=== PATIENT | male | born 1960 | race Caucasian/White ===

== ENCOUNTER 2016-12-31 22:38 | Inpatient (IN) | payer BC ==
[~2016-12-31] VITALS: Ht 172.7 cm; Wt 93.6 kg
[2016-12-31 23:44] LABS: MEAN CELL VOLUME 84.1 fL (80-100); MEAN CORPUSCULAR HEMOGLOBIN 30.3 pg (25-34); PLATELET COUNT 183 K/uL (130-400); RED BLOOD COUNT 5.11 M/uL (4.7-6.1); WHITE BLOOD COUNT 8.89 K/uL (4.8-10.8)
[2016-12-31 23:45] LABS: URINE APPEARANCE CLEAR (CLEAR); URINE BILIRUBIN NEG (NEG); URINE COLOR YELLOW; URINE NITRITE NEG (NEG); URINE SPECIFIC GRAVITY 1.017 (1.000-1.030); UROBILINOGEN POS (NEG); ZZUR CULT IF INDIC CLEAN CATCH NO
[2016-12-31 23:49] LABS: MANUAL MICROSCOPIC REQUIRED? NO; REVIEW REQ? NO
[2017-01-01 00:06] LABS: CREATININE 1.1 mg/dl (0.60-1.40); POTASSIUM 3.8 mmol/L (3.5-5.1)
[2017-01-01] MEDS ORDERED: MELO7.5T5 PO (00:06)
[2017-01-01] MEDS ORDERED: SODIUM CHLORIDE 0.9% 500ML 500 ML IV STA (00:08)
[2017-01-01] MEDS ORDERED: ASCA500 PO (00:11)
[2017-01-01] MEDS ORDERED: CHOL200010 PO (00:11)
[2017-01-01] MEDS ORDERED: POTA99TA PO (00:11)
[2017-01-01] MEDS ORDERED: PRLSR20 PO (00:11)
[2017-01-01] MEDS ORDERED: MELO15TA4 PO (00:12)
[2017-01-01] MEDS ORDERED: FERR50TA3 PO (00:13)
[2017-01-01 00:17] LABS: BASO % 0.3 %; BASO ABS # 0.03 K/uL (0-0.2); COMPLETE YES; EOS % 1.3 %; IG% 0.1 %; LYMPH ABS # 1.07 K/uL (1.2-3.4); MONO % 9.8 %; NEUT % 76.5 %
[2017-01-01] MEDS ORDERED: OPTIRAY 320 IV PRN (00:30)
[2017-01-01 02:24] LABS: INFLUENZA A PCR Neg for Influ A (NEG); INFLUENZA B PCR Neg for Influ B (NEG)
--- NOTE | 2017-01-01 02:24 | EMERGENCY ROOM VISIT NOTE ---
History Report prepared by Dao: Foreign Esteban Under the Supervision of: Dr. Shivani Tadeo M.D. First contact with patient: 23:30 Chief Complaint: FLANK PAIN Stated Complaint: PAIN IN SIDE History of Present Illness The patient is a 56 year old male who presents to the Emergency Room with complaints of intermittent right flank pain beginning 15 hours ago. He describes his pain as "sharp". He states that his pain is worsened with twisting. The patient states that he has not been able to get comfortable since his pain began. He denies any pain radiation and states that the pain does not move. He denies any nausea. The patient notes that he does a lot of physical activity at his job. He also complains of a cough. He states that he has been eating normally and denies any recent weight loss. The patient has no history of smoking. Source of History: patient Onset: 15 hours ago Position: other (right flank) Quality: sharp Timing: intermittent Modifying Factors (Worsening): other (twisting) Associated Symptoms: + cough, No nausea Review of Systems See HPI for pertinent positives & negatives. A total of 10 systems reviewed and were otherwise negative. Past Medical & Surgical Medical Problems: (1) Arthritis Family History No pertinent family history stated. Social History Smoking Status: Never Smoker Marital Status: Housing Status: lives with family Occupation Status: employed Current/Historical Medications Scheduled Ascorbic Acid (Vitamin C), 500 MG PO DAILY Cholecalciferol (Vitamin D), 2,000 UNIT PO DAILY Ferrous Sulfate (Iron (Ferrous Sulfate)), 1 TAB PO DAILY Meloxicam (Mobic), 15 MG PO DAILY Omeprazole (Prilosec), 20 MG PO BID Potassium (Potassium), 99 MG PO DAILY Allergies Coded Allergies: No Known Allergies (Unverified , 12/31/16) Physical Exam Vital Signs Date Time Temp Pulse Resp B/P Pulse Ox O2 Delivery O2 Flow Rate FiO2 01/01/17 01:20 90 22 128/78 93 Room Air 01/01/17 00:23 92 18 132/67 96 Room Air 01/01/17 00:02 94 12/31/16 22:44 37.8 96 18 150/87 95 Room Air Physical Exam Vital signs reviewed. General: Well-appearing male, in no significant distress. Noted to be mildly febrile. HEENT: No scleral icterus, PERRLA, neck supple. Atraumatic. Cardiovascular: Regular rate and rhythm, no extra sounds. Pulmonary: Diminished breath sounds at the right lung base. Splinting with deep inspiration. Abdomen: Soft, nontender, nondistended, positive bowel sounds. Musculoskeletal: Atraumatic, no peripheral edema. Neurologic: Patient awake alert and oriented x 3, full strength in all 4 extremities. Cranial nerves 2 through 12 grossly intact. Skin: Warm, dry, no rash Medical Decision & Procedures ER Provider Diagnostic Interpretation: CT results per statrad and my review. CTA CHEST: Pulmonary embolism in right lower lobe pulmonary artery, extending into segmental branches. Additional pulmonary emboli in left basilar segmental branches. Evaluation of lung parenchyma is limited by motion artifact, but there are patchy opacities in bilateral lung bases and lingula, which likely represent combination of atelectasis and pulmonary ischemia. No definite evidence of right heart strain. Trace right pleural fluid. No pericardial effusion. Two View Chest X-ray interpreted by me: Wedge shaped pulmonary consolidation in the retrocardiac region consistent with pneumonia. Fluid in the right fissure. Laboratory Results Test 12/31/16 23:30 01/01/17 00:04 01/01/17 00:20 Prothrombin Time 10.5 SECONDS (9.0-12.0) Prothromb Time International Ratio 1.0 (0.9-1.1) Activated Partial Thromboplast Time 28.5 SECONDS (21.0-31.0) Partial Thromboplastin Ratio 1.1 Urine Color YELLOW Urine Appearance CLEAR (CLEAR) Urine pH 8.0 (4.5-7.5) Urine Specific [place] 1.017 (1.000-1.030) Urine Protein NEG (NEG) Urine Glucose (UA) NEG (NEG) Urine Ketones NEG (NEG) Urine Occult Blood NEG (NEG) Urine Nitrite NEG (NEG) Urine Bilirubin NEG (NEG) Urine Urobilinogen POS (NEG) Urine Leukocyte Esterase NEG (NEG) Urine WBC (Auto) 0 /hpf (0-5) Urine RBC (Auto) 0-4 /hpf (0-4) Urine Hyaline Casts (Auto) 0 /lpf (0-5) Urine Epithelial Cells (Auto) 5-10 /lpf (0-5) Urine Bacteria (Auto) NEG (NEG) Magnesium Level 2.2 mg/dl (1.8-2.4) Total Bilirubin 1.1 mg/dl (0.2-1) Direct Bilirubin 0.2 mg/dl (0-0.2) Aspartate Amino Transf (AST/SGOT) 14 U/L (15-37) Alanine Aminotransferase (ALT/SGPT) 31 U/L (12-78) Alkaline Phosphatase 64 U/L (45-117) Total Protein 7.4 gm/dl (6.4-8.2) Albumin 3.9 gm/dl (3.4-5.0) Bedside Troponin I 0.000 ng/ml (0-0.045) Influenza Type A (RT-PCR) Neg for Influ A (NEG) Influenza Type A Antigen Neg for Influ A (NEG) Influenza Type B Antigen Neg for Influ B (NEG) Influenza Type B (RT-PCR) Neg for Influ B (NEG) Laboratory results per my review. Medications Administered Medications (Trade) Dose Ordered Sig/Abner Route Start Time Stop Time Status Last Admin Dose Admin Sodium Chloride (Nss 500ml) 500 ml @ 999 mls/hr Q31M STAT IV 01/01/17 00:08 01/01/17 00:38 DC 01/01/17 00:22 999 MLS/HR Heparin Sodium/ Dextrose 1 ea NOW STAT N/A 01/01/17 01:54 01/01/17 02:41 DC 01/01/17 02:34 1 EA ECG Indication: other (flank pain) Rate (beats per minute): 90 Rhythm: normal sinus Findings: no acute ischemic change, no ectopy ED Course 2332: Past medical records reviewed. The patient was evaluated in room C1. A complete history and physical examination was performed. 0008: Ordered Sodium Chloride 500 ml @ 999 mls/hr IV. 0154: Ordered Heparin Sodium/Dextrose. 0218: Upon reevaluation, the patient is resting comfortably. I discussed laboratory and radiographic results with him. He verbalized agreement of the treatment plan. [facility] The patient will be evaluated for further management and care. Medical Decision The patient is a 56 year old male who presents to the ED with complaints of right flank pain. Differentials include pneumonia, pleural effusion, cholecystitis, PE, influenza, ACS, musculoskeletal pain, kidney stone, as well as other etiologies were considered. This patient was evaluated and appeared to be in some discomfort. IV access was obtained and laboratory work was drawn. Patient was hydrated with normal saline solution, he declined any pain medication. Chest x-ray was performed and to my interpretation reveals a wedge shaped density in the retrocardiac region. It does not appear to be a standard pneumonia, a CT scan of the chest was performed to rule out pulmonary embolus. This study is positive for bilateral PE. Patient was informed of the findings. A hypercoagulable workup was drawn as this is an unprovoked PE. Patient was placed on a heparin drip with a standard bolus. Case was discussed with the hospitalist service will evaluate the patient for further management. Patient has are aware of the plan and agree. Consults Time Called: 0158 Consulting Physician: Dr. Eren Lopez Returned Call: 0218 I reviewed the patient's case with Dr. Jason. Bailey will evaluate the patient for further management. Impression Primary Impression: Bilateral pulmonary embolism Scribe Attestation The scribe's documentation has been prepared under my direction and personally reviewed by me in its entirety. I confirm that the note above accurately reflects all work, treatment, procedures, and medical decision making performed by me. Departure Information Dispostion Being Evaluated By Hospitalist Referrals No Doctor, Assigned (PCP) Patient Instructions My [facility]
[2017-01-01] MEDS ORDERED: AZITHROMYCIN 250 MG TAB PO ONE (02:30)
[2017-01-01] MEDS ORDERED: ACETAMINOPHEN 325 MG TAB PO PRN ×2 (02:30→03:15)
[2017-01-01 02:31] LABS: MAGNESIUM 2.2 mg/dl (1.8-2.4)
[2017-01-01 02:32] LABS: PARTIAL THROMBOPLASTIN RATIO 1.1; PROTHROMBIN TIME (PATIENT) 10.5 SECONDS (9.0-12.0)
[2017-01-01] MEDS ORDERED: HEPARIN SOD 5000 UNIT/0.5 ML CARP ONE (02:34)
[2017-01-01] MEDS ORDERED: HEPARIN 25000 UNIT/500 ML D5W ONE (02:34)
[2017-01-01] MEDS ORDERED: AZITHROMYCIN 250 MG TAB ONE (03:01)
[2017-01-01] MEDS ORDERED: LORAZEPAM 2 MG/ML 1 ML VIAL IV PRN (03:15)
[2017-01-01] MEDS ORDERED: BENZONATATE 100MG CAP PO PRN (03:15)
[2017-01-01] MEDS ORDERED: TRAMADOL HCL 50 MG TAB PO PRN (03:15)
[2017-01-01] MEDS ORDERED: MoRPHine SULFATE 4 MG/ML 1 ML CARP\\VIAL IV PRN (03:15)
[2017-01-01] MEDS ORDERED: ONDANSETRON INJ 2 MG/ML 2 ML VIAL IV PRN (03:15)
[2017-01-01] MEDS ORDERED: KETOROLAC TROMETHAMINE 30 MG/ML VIAL IV PRN (03:15)
[2017-01-01] MEDS ORDERED: LACTATED RINGER'S 1000ML 1,000 ML IV ONE (03:15)
[2017-01-01 03:40] VITALS: BP 152/89; PULSE 87; TEMP 37.2; O2SAT 94; Ht 172.7 cm; Wt 93.6 kg
[2017-01-01] MEDS ORDERED: LORAZEPAM INJ 0.5 MG in SYRINGE 0.75 ML IV PRN (04:30)
[2017-01-01] MEDS ORDERED: GUAIFENESIN 600 MG TABCR PO ONE (04:30)
[2017-01-01] MEDS ORDERED: ACETAMINOPHEN 325 MG TAB PO ONE (04:30)
--- NOTE | 2017-01-01 04:35 | HISTORY & PHYSICAL EXAMINATION ---
DATE OF ADMISSION: 01/01/2017 PRIMARY PREVIOUS PCP : Dr. Ivan Horta. The patient requesting to follow up with Dr. Sullivan upon discharge from the hospital. History was obtained from the patient and records. CHIEF COMPLAINT: Right flank pain and shortness of breath. HISTORY OF PRESENT ILLNESS: Medical history is significant for hyperlipidemia, colonic polyps, arthritis. IBS constipation-predominant. A few days history of L lower extremity cramping, no immobilization. No recent prolonged travel. Last night, the patient complained of pleuritic right flank pain, some shortness of breath and dry cough symptoms. Denies aspiration. Low-grade fever. No known sick contacts. CAT scan at the ER initial read showed bilateral pulmonary embolism, atelectasis vs bilateral opacities. The patient was given IV heparin bolus. MEDICAL HISTORY: As above. Last colonoscopy showed adenomatous polyps in 2013. The patient is scheduled for outpx followup colonoscopy on 03/05/2017 ( Dr. Wallace). SURGERIES: He has had knee surgery, tonsillectomy and adenoidectomy. HOME MEDICATIONS: Include; vitamin C, vitamin D, ferrous sulfate, Mobic, Prilosec and potassium. ALLERGIES: No known drug allergies. FAMILY HISTORY: Diabetes, prostate cancer and lung cancer. heart disease. No blood clots. PERSONAL AND SOCIAL HISTORY: Nonsmoker. No chronic intake of alcoholic beverages. [employer]. REVIEW OF SYSTEMS: As per HPI. All other ROS negative. PHYSICAL EXAMINATION: VITAL SIGNS: Blood pressure was noted to be 150/87 later 130/80 pulse rate 92, RR 18, temp 37.8 and sats 96 on room air. GENERAL: Noted to be slightly anxious, in no respiratory distress. Obese. SKIN: Normal color. HEENT: Partial alopecia. Carpio palpebral conjuctivae. Dry mucosa NECK: No JVD. Supple. CHEST: Clear to auscultation. HEART: Regular rate and rhythm. ABDOMEN: Soft. EXTREMITIES: No edema, no tenderness. NEUROLOGIC: No gross focality. LABORATORIES: Hemoglobin was noted to be 15.5, white cell count 8.8 platelets 200 Sodium 140, potassium 3.8, chloride 104, CO2 32, BUN 30, creatinine 1.1 and glucose of 118. Troponin normal. CT chest initial read showed patchy opacities bilateral lung bases and bilateral pulmonary embolism. EKG showed rate of 90, normal sinus rhythm, LVH. ASSESSMENT: 1. Acute pulmonary embolism unprovoked event 2. atypical pneumonia, no sepsis 3. history of colonic polyps. PX scheduled for ffup screening colonoscopy 02/2017 PLAN: [facility] weight-based Lovenox for now defer decision as to choice for maintenance oral anticoagulant to to AM provider Lower extremity venous Dopplers to rule out DVT. Z-pack course Patient's will inform [facility] about new blood clots. DVT prophylaxis, weight-based Lovenox. Full code. MTDD
[2017-01-01 06:18] LABS: HEMATOCRIT 42.5 % (42-52); MEAN CELL VOLUME 83.5 fL (80-100); MEAN CORPUSCULAR HEMOGLOBIN 29.5 pg (25-34); MEAN CORPUSCULAR HGB CONC 35.3 g/dl (32-36); MEAN PLATELET VOLUME 9.4 fL (7.4-10.4); PLATELET COUNT 181 K/uL (130-400); RED BLOOD COUNT 5.09 M/uL (4.7-6.1); WHITE BLOOD COUNT 9.68 K/uL (4.8-10.8)
--- NOTE | 2017-01-01 06:33 | DIAGNOSTIC IMAGING REPORT ---
CHEST 2 VIEWS ROUTINE CLINICAL HISTORY: Atypical chest pain. Pneumonia. Right flank pain. COMPARISON STUDY: No previous studies for comparison. FINDINGS: The heart is mildly enlarged. There is no overt failure. There is no lobar consolidation. There is mild interstitial thickening with a basilar predominance.[ IMPRESSION: 1. Mild cardiomegaly 2. Moderate interstitial thickening with a basilar predominance Electronically signed by: Omkar Saeed M.D. 01/01/2017 6:32 AM Dictated Date/Time: 01/01/2017 6:31 AM
[2017-01-01 06:52] VITALS: BP 132/79; PULSE 84; TEMP 36.8; O2SAT 94
[2017-01-01 06:52] LABS: BUN/CREATININE RATIO 13.1 (10-20); CREATININE 0.94 mg/dl (0.60-1.40); POTASSIUM 3.7 mmol/L (3.5-5.1)
[2017-01-01 06:55] LABS: BASO % 0.1 %; BASO ABS # 0.01 K/uL (0-0.2); COMPLETE YES; EOS % 0.4 %; IG% 0.3 %; LYMPH % 10.1 %; LYMPH ABS # 0.98 K/uL (1.2-3.4); MONO % 9.9 %; NEUT % 79.2 %
[2017-01-01] MEDS ORDERED: ENOXAPARIN 100 MG/1ML SYR SQ SCH (07:00)
--- NOTE | 2017-01-01 07:05 | DIAGNOSTIC IMAGING REPORT ---
CT ANGIOGRAM OF THE CHEST CLINICAL HISTORY: Atypical chest pain. Pneumonia. COMPARISON STUDY: Chest x-ray dated 12/31/2016 TECHNIQUE: Following the IV administration of 91 mL of Optiray-320, CT angiogram of the thorax was performed from the thoracic inlet to the lung bases utilizing the pulmonary embolus protocol. Images are reviewed in the axial, sagittal, and coronal planes. IV contrast was administered without complication. MIP imaging was performed. CT DOSE: 532.82 mGycm FINDINGS: Mediastinal lymph nodes are the upper limits of normal in size measuring up to 1 cm in short axis. Left hilar lymph nodes are the upper limits of normal in size. There is no pathologic axillary lymphadenopathy. There was no evidence of thoracic aortic dilatation. There are bilateral pulmonary artery filling defects, most pronounced involving the lower lobes. The findings are indicative of acute bilateral pulmonary embolism. There is a trace right pleural effusion. There are by basilar airspace opacities. These could be atelectatic or related to pulmonary infarction. IMPRESSION: 1. Acute bilateral pulmonary embolism 2. Trace right pleural effusion 3. Bibasal airspace opacities Electronically signed by: Omkar Saeed M.D. 01/01/2017 7:03 AM Dictated Date/Time: 01/01/2017 6:59 AM
--- NOTE | 2017-01-01 07:13 | DIAGNOSTIC IMAGING REPORT ---
BILATERAL LOWER EXTREMITY VENOUS DOPPLER CLINICAL HISTORY: Leg cramps. COMPARISON STUDY: No previous studies for comparison. TECHNIQUE: Sonography of the deep venous system of the bilateral lower extremities was performed. Compression and augmentation were evaluated. FINDINGS: There is no deep venous thrombus within the right lower extremity. Deep venous thrombus was noted within the left peroneal and posterior tibial veins. Note was made of a 1.5 x 0.6 x 1.4 cm hypoechoic abnormality with the left popliteal fossa. This has low level internal echoes without color flow. IMPRESSION: 1. Deep venous thrombus within the left peroneal and posterior tibial veins. 2. No deep venous thrombus within the right lower extremity. 3. 1.5 x 0.6 x 1.4 cm hypoechoic abnormality within the left popliteal fossa. This may reflect a borderline enlarged lymph node. A follow-up ultrasound in 6 months is recommended. Electronically signed by: Wilfrido Davidson M.D. 01/01/2017 7:11 AM Dictated Date/Time: 01/01/2017 7:09 AM
[2017-01-01] MEDS: PANTOprazole SOD 40 MG TAB PO SCH ×2 (08:17→21:26)
[2017-01-01] MEDS: DOCUSATE SODIUM 100 MG CAP PO SCH (08:17)
--- NOTE | 2017-01-01 13:50 | ECHOCARDIOGRAM REPORT ---
*NOTICE TO RECEIVING DEMOCRAT AGENCY This information is strictly Confidential and protected under [place] law. [place] law prohibits you from making any further disclosure of this information unless further disclosure is expressly permitted by the written consent of the person to whom it pertains or is authorized by law. A general authorization for the release of medical or other information is not sufficient for this purpose. Hospital accepts no responsibility if the information is made available to any other person, INCLUDING THE PATIENT. Interpretation Summary * Name: RICK LANTIGUA Study Date: 01/01/2017 09:41 AM BP: 132/79 mmHg * Patient Location: C.MSN\S\N385\S\2 HR: 84 * : 1960 (M/d/yyyy) Gender: Male Height: 67 in * Age: 56 yrs Ethnicity: [place] Weight: 206 lb * Ordering Physician: Gaby Luevano * Referring Physician: Self, Referred * Performed By: Corine Contreras RDCS * * Reason For Study: PULMONARY EMBOLISM, RV HEART STRAIN * BSA: 2.0 m2 * History: PULMONARY EMBOLISM, RV HEART STRAIN * -- Conclusions -- * The right ventricle is normal in size and function. * Doppler findings do not suggest pulmonary hypertension. * The left ventricular wall motion is normal. * There is mild concentric left ventricular hypertrophy. * Left ventricular systolic function is normal. * Ejection Fraction = 60-65%. * Diastolic dysfunction, Grade II (pseudonormalization pattern). Procedure Details * A complete two-dimensional transthoracic echocardiogram was performed (2D, M-mode, Doppler and color flow Doppler). Left Ventricle * The left ventricle is normal in size. * There is mild concentric left ventricular hypertrophy. * Left ventricular systolic function is normal. * Ejection Fraction = 60-65%. * The left ventricular wall motion is normal. Right Ventricle * The right ventricle is normal in size and function. * The right ventricular systolic function is normal as assessed by tricuspid annular plane systolic excursion (TAPSE) (normal >1.5 cm). Atria * The left atrial size is normal. * Right atrial size is normal. * There is no evidence of atrial septal defect, but resolution does not allow assessment for a patent foramen ovale. Mitral Valve * The mitral valve is normal. * There is no mitral valve stenosis. * Significant mitral regurgitation is absent. Tricuspid Valve * The tricuspid valve is normal. * There is no tricuspid stenosis. * Significant tricuspid regurgitation is absent. * Doppler findings do not suggest pulmonary hypertension. Aortic Valve * The aortic valve is trileaflet. * Aortic stenosis is absent. * There is no significant aortic regurgitation. Pulmonic Valve * The pulmonary valve is not well seen, but the Doppler examination is normal without significant regurgitation or stenosis. Great Vessels * The aortic root and proximal ascending aorta are normal sized. Pericardium/Pleural * There is no pericardial effusion. Great Vessels * Normal inferior vena cava diameter and respiratory variation suggests normal central venous pressure. * Normal inferior vena cava size and collapsability with sniff indicates a normal right atrial pressure of 3 mmHg Left Ventricular Diastolic Function * Diastolic dysfunction, Grade II (pseudonormalization pattern). MMode 2D Measurements and Calculations IVSd 1.3 cm IVSs 1.5 cm LVIDd 4.3 cm LVIDs 3.0 cm LVPWd 1.3 cm LVPWs 1.8 cm IVS/LVPW 1.0 FS 30.8 % EDV(Teich) 84.9 ml ESV(Teich) 35.1 ml EF(Teich) 58.7 % EDV(cubed) 81.8 ml ESV(cubed) 27.1 ml EF(cubed) 66.9 % % IVS thick 13.4 % % LVPW thick 37.2 % LV mass(C)d 209.6 grams LV mass(C)dI 102.4 grams/m\S\2 LV mass(C)s 181.1 grams LV mass(C)sI 88.4 grams/m\S\2 SV(Teich) 49.8 ml SI(Teich) 24.3 ml/m\S\2 SV(cubed) 54.7 ml SI(cubed) 26.7 ml/m\S\2 Ao root diam 3.2 cm Ao root area 8.2 cm\S\2 ACS 1.8 cm asc Aorta Diam 2.9 cm LVAd ap4 34.5 cm\S\2 LVLd ap4 8.7 cm EDV(MOD-sp4) 112.4 ml EDV(sp4-el) 116.0 ml LVAs ap4 19.6 cm\S\2 LVLs ap4 7.2 cm ESV(MOD-sp4) 45.8 ml ESV(sp4-el) 45.2 ml EF(MOD-sp4) 59.2 % EF(sp4-el) 61.0 % LVAd ap2 35.4 cm\S\2 LVLd ap2 8.8 cm EDV(MOD-sp2) 121.4 ml EDV(sp2-el) 121.3 ml LVAs ap2 21.9 cm\S\2 LVLs ap2 7.9 cm ESV(MOD-sp2) 52.4 ml ESV(sp2-el) 51.6 ml EF(MOD-sp2) 56.9 % EF(sp2-el) 57.4 % LVLd %diff 0.95 % EDV(MOD-bp) 117.2 ml LVLs %diff 8.8 % ESV(MOD-bp) 51.1 ml EF(MOD-bp) 56.4 % SV(MOD-sp4) 66.6 ml SI(MOD-sp4) 32.5 ml/m\S\2 SV(MOD-sp2) 69.0 ml SI(MOD-sp2) 33.7 ml/m\S\2 SV(MOD-bp) 66.1 ml SI(MOD-bp) 32.3 ml/m\S\2 SV(sp4-el) 70.8 ml SI(sp4-el) 34.6 ml/m\S\2 SV(sp2-el) 69.7 ml SI(sp2-el) 34.0 ml/m\S\2 Doppler Measurements and Calculations MV E max geo 86.3 cm/sec MV A max geo 67.9 cm/sec MV E/A 1.3 MV P1/2t max geo 108.6 cm/sec MV P1/2t 62.0 msec MVA(P1/2t) 3.6 cm\S\2 MV dec slope 513.4 cm/sec\S\2 MV dec time 0.31 sec Ao V2 max 139.9 cm/sec Ao max PG 7.8 mmHg Ao max PG (full) 1.7 mmHg LV V1 max PG 6.1 mmHg LV V1 max 123.6 cm/sec PA V2 max 149.9 cm/sec PA max PG 9.0 mmHg
[2017-01-01 16:11] VITALS: BP 123/76; PULSE 75; TEMP 36.6; O2SAT 95
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
[2017-01-01] MEDS: RIVAROXABAN TAB 15 MG TAB PO SCH (21:26)
[2017-01-01] MEDS: GUAIFENESIN 600 MG TABCR PO SCH (21:26)
[2017-01-01 23:57] VITALS: BP 124/76; PULSE 71; TEMP 36.7; O2SAT 94
[2017-01-02 06:18] LABS: BASO % 0.5 %; BASO ABS # 0.03 K/uL (0-0.2); COMPLETE YES; EOS % 3.9 %; HEMATOCRIT 40.9 % (42-52); IG% 0.2 %; LYMPH % 19.6 %; MEAN CELL VOLUME 84.7 fL (80-100); MEAN CORPUSCULAR HEMOGLOBIN 29.6 pg (25-34); MONO % 10.1 %; NEUT % 65.7 %; PLATELET COUNT 172 K/uL (130-400); RED BLOOD COUNT 4.83 M/uL (4.7-6.1); WHITE BLOOD COUNT 5.62 K/uL (4.8-10.8)
[2017-01-02 07:12] VITALS: BP 123/76; PULSE 63; TEMP 36.7; O2SAT 95
[2017-01-02] MEDS ORDERED: AZITHROMYCIN 250 MG TAB PO SCH (09:00)
[2017-01-02] MEDS: GUAIFENESIN 600 MG TABCR PO SCH (09:13)
[2017-01-02] MEDS: RIVAROXABAN TAB 15 MG TAB PO SCH (09:13)
[2017-01-02] MEDS: DOCUSATE SODIUM 100 MG CAP PO SCH (09:13)
[2017-01-02] MEDS: PANTOprazole SOD 40 MG TAB PO SCH (09:14)
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
[2017-01-02] MEDS ORDERED: MoRPHine SULFATE 2 MG/ML CARP IV PRN (12:15)
[2017-01-02] MEDS ORDERED: ZTHM250 PO (14:12)
[2017-01-02] MEDS ORDERED: RIVA1TAB7 PO (14:12)
[2017-01-02] MEDS ORDERED: BENZ100C7 PO (14:12)
[2017-01-02 14:13] VITALS: BP 123/76; PULSE 63; TEMP 36.7; O2SAT 95
--- NOTE | 2017-01-02 14:37 | Discharge Instructions ---
Discharge Instructions Date of Service Jan 02, 2017. Admission Reason for Admission: Bilateral Pulmonary Embolism Discharge Discharge Diagnosis / Problem: Bilateral pulmonary embolism; LLE DVT Discharge Goals Goal(s): Decrease discomfort, Improve function, Diagnostic testing, Therapeutic intervention Activity Recommendations Activity Limitations: resume your previous activity . Instructions / Follow-Up Instructions / Follow-Up Please follow-up with Dr. Sullivan on January 07 @ 1:00PM * You will be prescribed a Xarelto starter pack - for the first 21 days you are to take 15mg twice a day -- I would like you to skip one tablet, take one 15mg tablet tonight (01/02) and then start on day #2 of the starter pack * You will be prescribed Azithromycin (antibiotic) take this once a day for 3 more days * Your primary care doctor should check back on the hypercoagulable (blood work) * A repeat left leg ultrasound should be done in 6 months to follow-up on a possible lymph node enlargement Current Hospital Diet Patient's current hospital diet: AHA Diet (Heart Healthy) Discharge Diet Recommended Diet: AHA Diet (Heart Healthy) Pending Studies Studies pending at discharge: no Medical Emergencies . Who to Call and When: Medical Emergencies: If at any time you feel your situation is an emergency, please call 911 immediately. . Non-Emergent Contact Non-Emergency issues call your: Primary Care Provider . . "Provider Documentation" section prepared by Gaby Luevano. VTE Core Measure Inpt VTE Proph given/why not?: Enoxaparin (Lovenox)SQ, Other Anticoagulation ( Xarelto)
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
[2017-01-05 21:37] LABS: B2 GLYCOPROTEIN IGA <9 SAU (<=20); B2 GLYCOPROTEIN IGG <9 SGU (<=20); B2 GLYCOPROTEIN IGM 10 SMU (<=20)
== END 2017-01-02 14:54 | disposition home or self-care (01) | DRG 175 ==
LOC: ENRESERVTM → ENRESERVDT → C.EDB 22:39 → C.MSN 01-01 02:32
PROVIDERS: ADMIT Internal Medicine; ATTEND Family Medicine
DX: I26.99 Other pulmonary embolism without acute cor pulmonale (principal); J18.9 Pneumonia, unspecified organism; I82.4Z2 Acute embolism and thrombosis of unspecified deep veins of left distal lower extremity; E78.5 Hyperlipidemia, unspecified; K58.1 Irritable bowel syndrome with constipation; Z86.010 Personal history of colon polyps; M19.90 Unspecified osteoarthritis, unspecified site; Z83.3 Family history of diabetes mellitus

== ENCOUNTER 2023-12-08 17:22 | Inpatient (IN) ==
--- NOTE | 2023-12-08 18:05 | ED Triage Note ---
Date of Service December 08, 2023 Provider in Triage Author: Tamiko Powers History of Present Illness This patient was briefly evaluated while in triage. An abbreviated physical exam was performed. This patient is a 63-year-old Male who presents to the ED for evaluation of pain in his left calf which started 2-3 days ago. He has a history of a blood clot 6-7 years ago. He had a DVT and PE at that time. He has had a cough and right sided flank pain when he coughs. He states this feels similar to when he had the PE/DVT last time. Physical Exam GENERAL: Non-toxic and in no acute distress. HEENT: Pupils equal. No obvious scleral icterus. HEART: Regular rate and rhythm. LUNGS: Clear to auscultation. No accessory muscle use. NEURO: Alert and oriented. No obvious neurological deficits on quick neuro exam. EXTREMITIES: Mild tenderness in the left calf. Initial orders for labs and / or imaging were placed and patient was placed in the waiting area until a bed is available. Please see further documentation for the full ED course.
[2023-12-08 18:30] LABS: Basophils # (auto) 0.03 K/uL (0.00-0.20); Basophils % (auto) 0.5 %; Eosinophils % (auto) 1.8 %; Hematocrit (blood only) 48.7 % (42.0-52.0); Hemoglobin 16.6 g/dl (14.0-18.0); Immature Granulocytes # (auto) 0.02 K/uL (0.01-0.20); Immature Granulocytes % (auto) 0.4 %; Lymphocytes # (auto) 0.49 K/uL (1.20-3.40); Lymphocytes % (auto) 8.8 %; Mean Corpuscular Hemoglobin 29.6 pg (25.0-34.0); Mean Corpuscular Hgb Conc 34.1 g/dL (32.0-36.0); Mean Corpuscular Volume 86.8 fL (80.0-100.0); Mean Platelet Volume 8.8 fL (9.4-12.4); Monocytes # (auto) 0.53 K/uL (0.11-0.59); Monocytes % (auto) 9.5 %; Neutrophils # (auto) 4.41 K/uL (1.40-6.50); Platelet Count 158 K/uL (130-400); RDW Coefficient of Variation 13.4 % (11.5-14.5); RDW Standard Deviation 41.9 fL (36.4-46.3); Red Blood Count 5.61 M/uL (4.70-6.10); White Blood Count 5.58 K/ul (4.8-10.8)
[2023-12-08 18:45] LABS: Albumin Globulin Ratio 1.6 (0.9-2); Albumin Level 4.8 gm/dl (3.4-5.0); BUN Creatinine Ratio 12.8 (10-20); Bilirubin,Total 1.1 mg/dl (0.2-1.0); Calcium 9.4 mg/dl (8.6-10.3); Creatinine Clr Calc Pharmacy 72.3 ml/min; Est GFR (African American) 75.4 ml/min; Potassium 4.1 mmol/L (3.5-5.1); Total Protein 7.8 gm/dl (6.0-8.3)
[2023-12-08 18:51] LABS: Troponin I High Sensitivity 5.4 pg/ml (0-20)
[2023-12-08 18:57] LABS: Partial Thromboplastin Ratio 0.9; Partial Thromboplastin Time 25 Seconds (21-31); Prothrombin Time 10.8 Seconds (9.0-12.0)
[2023-12-08 19:18] LABS: Influenza A virus by PCR Positive (Neg); Influenza B virus by PCR Negative (Neg); RSV by PCR Negative (Neg); SARS CoV2 RNA(COVID-19) Ceph NEGATIVE (Negative)
--- NOTE | 2023-12-08 20:27 | Ultrasound Report ---
ULTRASOUND LEFT LOWER EXTREMITY VENOUS CLINICAL HISTORY: Left leg pain. COMPARISON STUDY: Left lower extremity venous ultrasound dated 12/16/2019. TECHNIQUE: Real-time, grayscale, and color Doppler sonography of the deep veins of the left lower ext remity was performed from the inguinal crease to the calf. Compression and augmentation were utilized . FINDINGS: There is occlusive deep venous thrombosis in the calf within the peroneal veins. The remain ing calf vessels are patent. The common femoral, superficial femoral, and popliteal veins are patent and normally compressible. The greater saphenous vein and the profunda femoris vein at the junction w ith the common femoral vein are clear. IMPRESSION: Occlusive deep venous thrombosis is seen in the left calf within the peroneal veins. ACT 112: Negative or not required by law. Electronically signed by: Anil Galarza M.D. 12/08/2023 8:24 PM
--- NOTE | 2023-12-08 20:47 | Emergency Department Note ---
Impression & Plan Pulmonary embolism, DVT (deep venous thrombosis), Influenza ED Provider Note NAME: RICK LANTIGUA AGE: 63 SEX: M : 1960 ARRIVES VIA: Walk-In INFORMANT: Patient, ED PROVIDER(S): Tristin Walker DO CHIEF COMPLAINT: Leg pain HPI: The patient is a 63-year-old male who presented to the emergency department for an evaluation of leg pain. The patient has a history of similar episodes in the past. The patient does have a history of DVT but currently is not taking any blood thinners. The patient started noticing cough and some difficulty breathing. He also had a low-grade fever. The patient started noticing pain in his left calf. The patient came to the emergency department today because he was concerned he had another DVT as well as possibly a clot in his lungs. The patient denies having any sick contacts. He denies having any nausea or vomiting. He denies having any difficulty with leg swelling but does have pain in his left calf. He has a history of knee replacement and his previous DVT was in the same leg. The patient has not been seen by his family doctor for the symptoms. ROS: See above HPI for pertinent positives & negatives. A total of 10 systems reviewed and were otherwise negative. PAST MEDICAL HISTORY: See Below PAST SURGICAL HISTORY: See Below FAMILY HISTORY: See Below SOCIAL HISTORY: See Below HOME MEDICATIONS: See Below ALLERGIES: See Below VITALS: See Below PHYSICAL EXAMINATION: GENERAL: Patient is awake alert in no acute distress patient is resting comfortably and showing no signs of anxiety EYES: The conjunctivae are clear. The pupils are round and reactive. EARS, NOSE, MOUTH AND THROAT: The nose is without any evidence of any deformity. NECK: The neck is nontender and supple. RESPIRATORY: Normal respiratory effort is noted there is no evidence of wheezing rhonchi or rales CARDIOVASCULAR: Regular rate and rhythm noted there no murmurs rubs or gallops normal S1 normal S2. GASTROINTESTINAL: The abdomen is soft. Abdomen is nontender. MUSCULOSKELETAL/EXTREMITIES: There is no evidence of gross deformity full range of motion is noted in the hips and shoulders. SKIN: There is no obvious evidence of any rash. There is tenderness on the medial aspect of the left calf. Pulses are symmetric in both feet NEUROLOGIC: Patient is awake alert and oriented x3 MEDICAL DECISION MAKING: The patient is a 63-year-old male who presented to the emergency department for leg pain. The patient has been having problems with a cough since earlier in the week. He was positive for the flu. Initially I thought this explain the patient's cough and discomfort but he was found to have a new DVT in his left leg. The patient had a CT angiography of the chest obtained which does appear to be consistent with venous thromboembolic disease. Given these findings I do feel the patient would be a better candidate for inpatient management. He was started on IV heparin in the emergency department. At this time the patient's EKG shows no ischemic changes. He did have a low-grade fever but no tachycardia or elevation in his troponin. I discussed his condition with the on-call [facility]. They have agreed to evaluate the patient in the emergency department. Triage Nursing notes reviewed. Prior medical records reviewed Vital Signs: reviewed and remarkable for no significant abnormalities Differential diagnosis: DVT, musculoskeletal, infection, joint effusion, trauma, lymphedema, idiopathic, CHF, as well as other pathologies. ER treatment provided: See below Diagnostics interpreted by me: ECG: EKG was obtained in the emergency department. My interpretation is normal sinus rhythm at 99 bpm. There is no ectopy. Nonspecific ST segment abnormalities were noted in the lateral leads. This was compared to a tracing from January 01, 2017. No changes were noted. Cardiac Monitoring: An order was placed for continuous cardiac monitoring. The monitor shows a rate of 84 bpm with sinus rhythm. Laboratory studies: As stated above and show below. Imaging studies: See below. Radiographic imaging was reviewed by myself Consultation(s): I discussed this case with Dr. Meraz who is on-call for the [facility] group. ED COURSE: Procedures: none Critical Care: I have personally spent greater than 45 minutes of critical care time in the direct management of this patient. This includes bedside care, interpretation of diagnostic studies, and testing, discussion with consultants, patient, and family members, and other required patient management activities. This 45 minutes is in excess of all separately billable procedures. Past Med/Surg History Medical History (Updated 12/08/23 @ 21:36 by Tristin Walker DO) Obesity GERD (gastroesophageal reflux disease) controlled Osteoarthritis IBS (irritable bowel syndrome) [place] (hard of hearing) History of pulmonary embolism 5 years ago History of DVT (deep vein thrombosis) 5 years ago - LLE - unk etiology - treated w/ coumadin x 6 mo Hyperlipidemia Surgical History History of left knee replacement History of arthroscopy of left knee History of tonsillectomy History of colonoscopy with polypectomy Family History Father Prostate cancer Lung cancer Colon cancer Mother Hypertension Sister Diabetes Other No family history of adverse response to anesthesia Social History Smoking Status: Never smoker Second Hand Exposure: No; Do You Dip or Chew Tobacco: No; Hx Alcohol Use: Yes Hx Substance Use: No Preferred Language: Lithuanian Communication Ability: Effective Visual Impairment: No 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 Beliefs That Will Affect Care: None marital status: Current Living Situation: Spouse current occupational status: employed Feels Safe at Home: Yes Assistive Devices: Glasses Allergies Allergies Allergy/AdvReac Type Severity Reaction Status Date / Time No Known Allergies Allergy Verified 12/08/23 20:52 Home Meds Home Medications Medication Instructions Recorded Confirmed atorvastatin 40 mg tablet 40 mg PO QPM 01/26/20 12/08/23 cholecalciferol (vitamin D3) 50 50 mcg PO QPM 01/26/20 12/08/23 mcg (2,000 unit) capsule (Vitamin D3) omeprazole 20 mg capsule,delayed 20 mg PO BID 01/26/20 12/08/23 release aspirin 81 mg tablet,delayed 81 mg PO QPM 03/10/20 12/08/23 release polyethylene glycol 3350 17 gram 17 g PO QPM 03/10/20 12/08/23 oral powder packet (Miralax) potassium gluconate 595 mg (99 mg) 595 mg PO QPM 03/10/20 12/08/23 tablet dextrin 3 gram/3.5 gram oral 3 g PO QPM 12/08/23 12/08/23 powder (Fiber (dextrin)) gabapentin 400 mg capsule 400 mg PO HS 12/08/23 12/08/23 Results & Data (ED) Vital Signs Vital Signs - 24 hr 12/08/23 17:23 12/08/23 17:23 12/08/23 21:09 Temperature 38.3 C H Temperature Source Temporal Artery Scan Pulse Rate 103 H 93 H Pulse Rate [Apical] Respiratory Rate 18 18 Blood Pressure 148/88 H Blood Pressure [Right Arm] Blood Pressure Mean 108 Blood Pressure Mean [Right Arm] Pulse Oximetry 94 Oxygen Delivery Method Room Air Sepsis Recent Fever Within 48 Hours No Sepsis New/Unexplained Change in Mental Status N/A Sepsis Action Taken by Nursing Physician Notified 12/08/23 21:11 12/08/23 21:14 Temperature Temperature Source Pulse Rate 84 Pulse Rate [Apical] 91 H Respiratory Rate 18 Blood Pressure Blood Pressure [Right Arm] 130/83 Blood Pressure Mean Blood Pressure Mean [Right Arm] 98 Pulse Oximetry 96 95 Oxygen Delivery Method Room Air Room Air Sepsis Recent Fever Within 48 Hours Sepsis New/Unexplained Change in Mental Status Sepsis Action Taken by [facility] Medications Current Medication List: was personally reviewed by me Laboratory Data Attestation: I reviewed the patient's lab results. 12/08/23 18:10 12/08/23 18:10 Lab Results 12/08/23 Range/Units 18:10 WBC 5.58 (4.8-10.8) K/ul RBC 5.61 (4.70-6.10) M/uL Hgb 16.6 (14.0-18.0) g/dl Hct 48.7 (42.0-52.0) % MCV 86.8 (80.0-100.0) fL MCH 29.6 (25.0-34.0) pg MCHC 34.1 (32.0-36.0) g/dL RDW Std Deviation 41.9 (36.4-46.3) fL RDW Coeff of Louis 13.4 (11.5-14.5) % Plt Count 158 (130-400) K/uL MPV 8.8 L (9.4-12.4) fL Immature Gran % (Auto) 0.4 % Neut % (Auto) 79.0 % Lymph % (Auto) 8.8 % Weld % (Auto) 9.5 % Eos % (Auto) 1.8 % Baso % (Auto) 0.5 % Neut # (Auto) 4.41 (1.40-6.50) K/uL Lymph # (Auto) 0.49 L (1.20-3.40) K/uL Weld # (Auto) 0.53 (0.11-0.59) K/uL Eos # (Auto) 0.10 (0.00-0.50) K/uL Baso # (Auto) 0.03 (0.00-0.20) K/uL Immature Gran # (Auto) 0.02 (0.01-0.20) K/uL PT 10.8 (9.0-12.0) Seconds INR 1.0 (0.9-1.1) APTT 25 (21-31) Seconds PTT Ratio 0.9 Sodium 140 (136-145) mmol/L Potassium 4.1 (3.5-5.1) mmol/L Chloride 105 (98-107) mmol/L Carbon Dioxide 26 (21-32) mmol/L Anion Gap 9 (3-11) BUN 15 (6-23) mg/dl Creatinine 1.17 (0.6-1.4) mg/dl Est Cr Clr Drug Dosing 72.3 ml/min Est GFR ( Amer) 75.4 ml/min Est GFR (Non-Af Amer) 65.0 ml/min BUN/Creatinine Ratio 12.8 (10-20) Glucose 99 (70-99(Fasting)) mg/dl Calcium 9.4 (8.6-10.3) mg/dl Total Bilirubin 1.1 H (0.2-1.0) mg/dl AST 24 (13-39) U/L ALT 36 (7-52) U/L Alkaline Phosphatase 67 (34-104) U/L Troponin I High Sens 5.4 (0-20) pg/ml Total Protein 7.8 (6.0-8.3) gm/dl Albumin 4.8 (3.4-5.0) gm/dl Globulin 3.0 (2.5-4.0) gm/dl Albumin/Globulin Ratio 1.6 (0.9-2) SARS-CoV-2 (PCR) NEGATIVE (Negative) Influenza Type A (PCR) Positive A (Neg) Influenza Type B (PCR) Negative (Neg) RSV (RT-PCR) Negative (Neg) Administered Medications Heparin Sodium/Dextrose (Heparin Sodium/Dextrose) 25,000 units in 500 mls @ 29 mls/hr IV .[id number] [facility]; Protocol Stop: 01/07/24 21:14 Last Admin: 12/08/23 21:57 Dose: 1,450 units/hr, 29 mls/hr Documented By: BHAVESH Co-signed By: JUNITO Discontinued Medications Heparin Sodium (Porcine) (Heparin Sod (Porcine) 1000 Unit/Ml) 6,000 units IV NOW ONE Stop: 12/08/23 22:01 Last Admin: 12/08/23 21:56 Dose: 6,000 units Documented By: BHAVESH Co-signed By: JUNITO Ioversol (Optiray 320 125ml) 117 ml IV ONCE ONE Stop: 12/08/23 20:51 Last Admin: 12/08/23 20:51 Dose: 117 ml Documented By: [employer] Imaging Data Attestation: I personally reviewed and interpreted this imaging study as follows: My Impression: CT angiography of the chest was obtained. My interpretation is venous thromboembolic disease noted in the left posterior lung. There is no free air, final report below. Radiologist's Impression: Chest CTA 12/08/23 18:06 CR Exam(s): CTA CHEST IV Amt: 118 cc opti 320 EXAM: CT Angiography Chest With Intravenous Contrast CLINICAL HISTORY: Reason for exam: right flank pain, hx pe. TECHNIQUE: Axial computed tomographic angiography images of the chest with intravenous contrast. CTDI is 39.75 mGy and DLP is 832.36 mGy-cm. Automated exposure control was utilized for the study. A dose lowering technique was utilized adhering to the principles of ALARA. MIP reconstructed images were created and reviewed. COMPARISON: No relevant prior studies available. FINDINGS: Pulmonary arteries: Acute pulmonary emboli in the LEFT segment on subsequent branches. No CT evidence of RIGHT heart strain. Aorta: No acute findings. No thoracic aortic aneurysm. Lungs: Unremarkable. No mass. No consolidation. Pleural space: Unremarkable. No focal infiltrate, pleural effusion, or pneumothorax. Heart: Unremarkable. No cardiomegaly. No significant pericardial effusion. No evidence of RV dysfunction. Bones/joints: No acute fracture. No dislocation. Soft tissues: Unremarkable. Lymph nodes: Unremarkable. No enlarged lymph nodes. IMPRESSION: Acute pulmonary emboli in the LEFT segment on subsequent branches. No CT evidence of RIGHT heart strain. Communications: Call Doctor Other Electronically signed by: Bill Marquez MD 12/08/23 21:12 PM Venous Doppler Study 12/08/23 18:06 ULTRASOUND LEFT LOWER EXTREMITY VENOUS CLINICAL HISTORY: Left leg pain. COMPARISON STUDY: Left lower extremity venous ultrasound dated 12/16/2019. TECHNIQUE: Real-time, grayscale, and color Doppler sonography of the deep veins of the left lower extremity was performed from the inguinal crease to the calf. Compression and augmentation were utilized. FINDINGS: There is occlusive deep venous thrombosis in the calf within the peroneal veins. The remaining calf vessels are patent. The common femoral, superficial femoral, and popliteal veins are patent and normally compressible. The greater saphenous vein and the profunda femoris vein at the junction with the common femoral vein are clear. IMPRESSION: Occlusive deep venous thrombosis is seen in the left calf within the peroneal veins. ACT 112: Negative or not required by law. Electronically signed by: Anil Galarza M.D. 12/08/2023 8:24 PM Discharge Plan Visit Data Chief Complaint: Leg Injury/Pain Stated Complaint: LT LEG PAIN, HISTORY OF BLOOD CLOT, KNOT LIKE FEEL ED Provider: Tristin Walker Discharge Problem: Pulmonary embolism, DVT (deep venous thrombosis), Influenza Patient Disposition: Being Evaluated by Hospitalist Forms Stand Alone Forms: [facility] Prescriptions Prescriptions: No Action omeprazole 20 mg capsule,delayed release(DR/EC) 20 mg PO BID atorvastatin 40 mg tablet 40 mg PO QPM cholecalciferol (vitamin D3) [Vitamin D3] 50 mcg (2,000 unit) capsule 50 mcg PO QPM polyethylene glycol 3350 [Miralax] 17 gram Powder In Packet 17 g PO QPM aspirin 81 mg Tablet,Delayed Release (Dr/Ec) 81 mg PO QPM potassium gluconate 595 mg (99 mg) Tablet 595 mg PO QPM gabapentin 400 mg capsule 400 mg PO HS Fiber (dextrin) 3 gram/3.5 gram Powder 3 g PO QPM Referrals Referrals: Kamryn Brandon DO [Primary Care Provider] - Discharge Problem: Pulmonary embolism Qualifiers: Pulmonary embolism type: unspecified Chronicity: acute Acute cor pulmonale presence: unspecified Qualified Code(s): I26.99 - Other pulmonary embolism without acute cor pulmonale DVT (deep venous thrombosis) Qualifiers: DVT location: lower extremity Affected thrombotic vein of extremity: peroneal C hronicity: acute Laterality: left Qualified Code(s): I82.452 - Acute embolism and thrombosis of left peroneal vein
[2023-12-08] MEDS: OPTIRAY 320 125ml IV ONE (20:51)
[2023-12-08] MEDS ORDERED: Heparin IV Adult Wt-Based Standard w/ INITIAL Bolus Protocol IV STA (20:59)
[2023-12-08] MEDS ORDERED: HEPARIN SOD (PORCINE) 1000 UNIT/ML IV ONE (21:14)
--- NOTE | 2023-12-08 21:14 | CT Scan Report ---
Exam(s): CTA CHEST IV Amt: 118 cc opti 320 EXAM: CT Angiography Chest With Intravenous Contrast CLINICAL HISTORY: Reason for exam: right flank pain, hx pe. TECHNIQUE: Axial computed tomographic angiography images of the chest with intravenous contrast. CTDI is 39.75 mGy and DLP is 832.36 mGy-cm. Automated exposure control was utilized for the study. A dose lowering technique was utilized adhering to the principles of ALARA. MIP reconstructed images were created and reviewed. COMPARISON: No relevant prior studies available. FINDINGS: Pulmonary arteries: Acute pulmonary emboli in the LEFT segment on subsequent branches. No CT evidence of RIGHT heart strain. Aorta: No acute findings. No thoracic aortic aneurysm. Lungs: Unremarkable. No mass. No consolidation. Pleural space: Unremarkable. No focal infiltrate, pleural effusion, or pneumothorax. Heart: Unremarkable. No cardiomegaly. No significant pericardial effusion. No evidence of RV dysfunction. Bones/joints: No acute fracture. No dislocation. Soft tissues: Unremarkable. Lymph nodes: Unremarkable. No enlarged lymph nodes. IMPRESSION: Acute pulmonary emboli in the LEFT segment on subsequent branches. No CT evidence of RIGHT heart strain. Communications: Call Doctor Other Electronically signed by: Bill Marquez MD 12/08/23 21:12 PM
[2023-12-08] MEDS: HEPARIN SOD (PORCINE) 1000 UNIT/ML IV ONE (21:56)
[2023-12-08] MEDS: HEPARIN SODIUM/DEXTROSE 25,000 UNITS/500 ML BAG IV SCH (21:57)
--- NOTE | 2023-12-09 02:17 | History & Physical Report ---
Date of Service December 09, 2023 Assessment & Plan (1) Pulmonary embolism: Plan: 63-year-old female with past medical history significant for hyperlipidemia, hiatal hernia, GERD, sigmoid diverticulosis, chronic constipation, hepatic steatosis, restless leg syndrome, history of DVT 6 to 7 years ago was on blood thinners for about 6 months and was stopped comes in because of ongoing cough for last 3 days and also pain in the left leg for last 3 days and chest pain started today and found to have DVT and PE and flu. His chest pain is more when coughing. States was having fever since yesterday. Denies runny nose or sore throat. No headache. No body aches. No weakness. Appetite is okay. No nausea. No abdominal pain. Normal bowel and bladder movements. He is take stool softeners for his chronic constipation. Denies any blood in the stools. Acute pulm embolism Acute left lower extremity DVT Started on IV heparin Will follow echo Monitor in the hospital Flu Symptoms started 3 days ago Supportive care Droplet precautions Chest pain More when taking deep breath EKG and troponin okay Will follow serial enzymes and echo History of hyperlipidemia Statin Restless leg syndrome On gabapentin GERD Omeprazole Chronic constipation Continue home stool softeners DVT prophylaxis On IV heparin Disposition Med/tele Full code . History of Present Illness Chief Complaint: Cough. Left leg pain. Chest pain. Primary Care Provider: Kamryn Brandon DO 63-year-old female with past medical history significant for hyperlipidemia, hiatal hernia, GERD, sigmoid diverticulosis, chronic constipation, hepatic steatosis, restless leg syndrome, history of DVT 6 to 7 years ago was on blood thinners for about 6 months and was stopped comes in because of ongoing cough for last 3 days and also pain in the left leg for last 3 days and chest pain started today and found to have DVT and PE and flu. His chest pain is more when coughing. States was having fever since yesterday. Denies runny nose or sore throat. No headache. No body aches. No weakness. Appetite is okay. No nausea. No abdominal pain. Normal bowel and bladder movements. He is take stool softeners for his chronic constipation. Denies any blood in the stools. Past med history. As mentioned above Past surgical history. Left total knee arthroplasty. Colonoscopy. Dental surgery. Endoscopy. ERCP. Tonsillectomy adenoidectomy. Left knee repair. Social history. . Former user of smokeless tobacco quit 1984. Snuff tobacco. Alcohol occasionally. No drug use Family history. Mother had arthritis. Hypertension. Father had prostate cancer. Uncle had prostate cancer. Sister has diabetes. Allergies Allergy/AdvReac Type Severity Reaction Status Date / Time No Known Allergies Allergy Verified 12/08/23 20:52 Home Medications Medication Instructions Recorded Confirmed Type atorvastatin 40 mg tablet 40 mg PO QPM 01/26/20 12/08/23 History cholecalciferol (vitamin D3) 50 50 mcg PO QPM 01/26/20 12/08/23 History mcg (2,000 unit) capsule (Vitamin D3) omeprazole 20 mg capsule,delayed 20 mg PO BID 01/26/20 12/08/23 History release aspirin 81 mg tablet,delayed 81 mg PO QPM 03/10/20 12/08/23 History release polyethylene glycol 3350 17 gram 17 g PO QPM 03/10/20 12/08/23 History oral powder packet (Miralax) potassium gluconate 595 mg (99 mg) 595 mg PO QPM 03/10/20 12/08/23 History tablet dextrin 3 gram/3.5 gram oral 3 g PO QPM 12/08/23 12/08/23 History powder (Fiber (dextrin)) gabapentin 400 mg capsule 400 mg PO HS 12/08/23 12/08/23 History Past Med/Surg History Medical History (Updated 12/08/23 @ 21:36 by Tristin Walker DO) Obesity GERD (gastroesophageal reflux disease) controlled Osteoarthritis IBS (irritable bowel syndrome) [place] (hard of hearing) History of pulmonary embolism 5 years ago History of DVT (deep vein thrombosis) 5 years ago - LLE - unk etiology - treated w/ coumadin x 6 mo Hyperlipidemia Surgical History History of left knee replacement History of arthroscopy of left knee History of tonsillectomy History of colonoscopy with polypectomy Family History Father Prostate cancer Lung cancer Colon cancer Mother Hypertension Sister Diabetes Other No family history of adverse response to anesthesia Social History Smoking Status: Never smoker Second Hand Exposure: No; Do You Dip or Chew Tobacco: No; Hx Alcohol Use: No Hx Substance Use: No Preferred Language: Persian Communication Ability: Effective Visual Impairment: No Limitations Supervisor Billposting Required: No Beliefs That Will Affect Care: None marital status: Current Living Situation: Spouse current occupational status: employed Other Information That Helps Us Care for You: No Feels Safe at Home: Yes Safety Concerns: Feels Safe At This Time Assistive Devices: Glasses Review of Systems Review of Systems: All systems reviewed & are unremarkable except as noted in HPI & below Physical Exam Physical Exam: General- Not in distress. Head- atraumatic Eyes- PERRL. ENT- oropharynx clear Neck- supple, no JVD. Lungs- clear to auscultation no wheezing or crackles. Heart- regular rhythm; no murmur, no gallop. Abdomen- normal bowel sounds, soft, nontender, no distension. Extremities- Left lower extremity is somewhat swollen and warm to palpation. Neuro- alert, oriented PERRL, no facial palsy; no dysarthria;obeys commands Results & Data Results & Data Vital Signs (Past 12 Hours) Vital Signs Temp Pulse Pulse Resp BP BP Pulse Ox 12/09/23 01:00 26 H 142/81 H 93 12/08/23 22:01 83 19 137/88 94 12/08/23 21:14 84 95 12/08/23 21:11 91 H 18 130/83 96 12/08/23 21:09 93 H 12/08/23 17:23 18 12/08/23 17:23 38.3 C H 103 H 18 148/88 H 94 O2 Del Method 12/09/23 01:00 Room Air 12/08/23 22:01 Room Air 12/08/23 21:14 Room Air 12/08/23 21:11 Room Air 12/08/23 21:09 12/08/23 17:23 12/08/23 17:23 Room Air Diagnostic Findings Laboratory Results WBC 5.58 K/ul (4.8-10.8) 12/08/23 18:10 RBC 5.61 M/uL (4.70-6.10) 12/08/23 18:10 Hgb 16.6 g/dl (14.0-18.0) 12/08/23 18:10 Hct 48.7 % (42.0-52.0) 12/08/23 18:10 MCV 86.8 fL (80.0-100.0) 12/08/23 18:10 MCH 29.6 pg (25.0-34.0) 12/08/23 18:10 MCHC 34.1 g/dL (32.0-36.0) 12/08/23 18:10 RDW Std Deviation 41.9 fL (36.4-46.3) 12/08/23 18:10 RDW Coeff of Louis 13.4 % (11.5-14.5) 12/08/23 18:10 Plt Count 158 K/uL (130-400) 12/08/23 18:10 MPV 8.8 fL (9.4-12.4) L 12/08/23 18:10 Immature Gran % (Auto) 0.4 % 12/08/23 18:10 Neut % (Auto) 79.0 % 12/08/23 18:10 Lymph % (Auto) 8.8 % 12/08/23 18:10 [place] % (Auto) 9.5 % 12/08/23 18:10 Eos % (Auto) 1.8 % 12/08/23 18:10 Baso % (Auto) 0.5 % 12/08/23 18:10 Neut # (Auto) 4.41 K/uL (1.40-6.50) 12/08/23 18:10 Lymph # (Auto) 0.49 K/uL (1.20-3.40) L 12/08/23 18:10 [place] # (Auto) 0.53 K/uL (0.11-0.59) 12/08/23 18:10 Eos # (Auto) 0.10 K/uL (0.00-0.50) 12/08/23 18:10 Baso # (Auto) 0.03 K/uL (0.00-0.20) 12/08/23 18:10 Immature Gran # (Auto) 0.02 K/uL (0.01-0.20) 12/08/23 18:10 PT 10.8 Seconds (9.0-12.0) 12/08/23 18:10 INR 1.0 (0.9-1.1) 12/08/23 18:10 APTT 25 Seconds (21-31) 12/08/23 18:10 PTT Ratio 0.9 12/08/23 18:10 Sodium 140 mmol/L (136-145) 12/08/23 18:10 Potassium 4.1 mmol/L (3.5-5.1) 12/08/23 18:10 Chloride 105 mmol/L (98-107) 12/08/23 18:10 Carbon Dioxide 26 mmol/L (21-32) 12/08/23 18:10 Anion Gap 9 (3-11) 12/08/23 18:10 BUN 15 mg/dl (6-23) 12/08/23 18:10 Creatinine 1.17 mg/dl (0.6-1.4) 12/08/23 18:10 Est Cr Clr Drug Dosing 72.3 ml/min 12/08/23 18:10 Est GFR ( Amer) 75.4 ml/min 12/08/23 18:10 Est GFR (Non-Af Amer) 65.0 ml/min 12/08/23 18:10 BUN/Creatinine Ratio 12.8 (10-20) 12/08/23 18:10 Glucose 99 mg/dl (70-99(Fasting)) 12/08/23 18:10 Calcium 9.4 mg/dl (8.6-10.3) 12/08/23 18:10 Total Bilirubin 1.1 mg/dl (0.2-1.0) H 12/08/23 18:10 AST 24 U/L (13-39) 12/08/23 18:10 ALT 36 U/L (7-52) 12/08/23 18:10 Alkaline Phosphatase 67 U/L (34-104) 12/08/23 18:10 Troponin I High Sens 5.4 pg/ml (0-20) 12/08/23 18:10 Total Protein 7.8 gm/dl (6.0-8.3) 12/08/23 18:10 Albumin 4.8 gm/dl (3.4-5.0) 12/08/23 18:10 Globulin 3.0 gm/dl (2.5-4.0) 12/08/23 18:10 Albumin/Globulin Ratio 1.6 (0.9-2) 12/08/23 18:10 SARS-CoV-2 (PCR) NEGATIVE (Negative) 12/08/23 18:10 Influenza Type A (PCR) Positive (Neg) A 12/08/23 18:10 Influenza Type B (PCR) Negative (Neg) 12/08/23 18:10 RSV (RT-PCR) Negative (Neg) 12/08/23 18:10 Impressions Chest CTA 12/08/23 18:06 CR Exam(s): CTA CHEST IV Amt: 118 cc opti 320 EXAM: CT Angiography Chest With Intravenous Contrast CLINICAL HISTORY: Reason for exam: right flank pain, hx pe. TECHNIQUE: Axial computed tomographic angiography images of the chest with intravenous contrast. CTDI is 39.75 mGy and DLP is 832.36 mGy-cm. Automated exposure control was utilized for the study. A dose lowering technique was utilized adhering to the principles of ALARA. MIP reconstructed images were created and reviewed. COMPARISON: No relevant prior studies available. FINDINGS: Pulmonary arteries: Acute pulmonary emboli in the LEFT segment on subsequent branches. No CT evidence of RIGHT heart strain. Aorta: No acute findings. No thoracic aortic aneurysm. Lungs: Unremarkable. No mass. No consolidation. Pleural space: Unremarkable. No focal infiltrate, pleural effusion, or pneumothorax. Heart: Unremarkable. No cardiomegaly. No significant pericardial effusion. No evidence of RV dysfunction. Bones/joints: No acute fracture. No dislocation. Soft tissues: Unremarkable. Lymph nodes: Unremarkable. No enlarged lymph nodes. IMPRESSION: Acute pulmonary emboli in the LEFT segment on subsequent branches. No CT evidence of RIGHT heart strain. Communications: Call Doctor Other Electronically signed by: Bill Marquez MD 12/08/23 21:12 PM Venous Doppler Study 12/08/23 18:06 ULTRASOUND LEFT LOWER EXTREMITY VENOUS CLINICAL HISTORY: Left leg pain. COMPARISON STUDY: Left lower extremity venous ultrasound dated 12/16/2019. TECHNIQUE: Real-time, grayscale, and color Doppler sonography of the deep veins of the left lower extremity was performed from the inguinal crease to the calf. Compression and augmentation were utilized. FINDINGS: There is occlusive deep venous thrombosis in the calf within the peroneal veins. The remaining calf vessels are patent. The common femoral, superficial femoral, and popliteal veins are patent and normally compressible. The greater saphenous vein and the profunda femoris vein at the junction with the common femoral vein are clear. IMPRESSION: Occlusive deep venous thrombosis is seen in the left calf within the peroneal veins. ACT 112: Negative or not required by law. Electronically signed by: Anil Galarza M.D. 12/08/2023 8:24 PM ECG Additional Comments: ECG. Normal sinus rhythm rate of 99. No significant change was found. Code Status & VTE Plan VTE Prophylaxis Plan VTE Prophylaxis will be ordered: Yes (1) Pulmonary embolism Acute cor pulmonale presence: unspecified Chronicity: acute Pulmonary embolism type: unspecified Qualified Code(s): I26.99 - Other pulmonary embolism without acute cor pulmonale
[2023-12-09] MEDS ORDERED: NITROGLYCERIN SL 0.4 MG/TAB TAB SL PRN (02:53)
[2023-12-09] MEDS ORDERED: ACETAMINOPHEN 325 MG TAB PO PRN (02:53)
[2023-12-09] MEDS: SODIUM CHLORIDE 0.9% 1,000 ML IV SCH (04:07)
[2023-12-09 04:27] LABS: Basophils # (auto) 0.03 K/uL (0.00-0.20); Basophils % (auto) 0.8 %; Eosinophils % (auto) 2.5 %; Hematocrit (blood only) 44.5 % (42.0-52.0); Hemoglobin 15.9 g/dl (14.0-18.0); Immature Granulocytes # (auto) 0.01 K/uL (0.01-0.20); Immature Granulocytes % (auto) 0.3 %; Lymphocytes # (auto) 0.81 K/uL (1.20-3.40); Lymphocytes % (auto) 20.3 %; Mean Corpuscular Hemoglobin 30.3 pg (25.0-34.0); Mean Corpuscular Hgb Conc 35.7 g/dL (32.0-36.0); Mean Corpuscular Volume 84.8 fL (80.0-100.0); Monocytes # (auto) 0.59 K/uL (0.11-0.59); Monocytes % (auto) 14.8 %; Neutrophils # (auto) 2.46 K/uL (1.40-6.50); Neutrophils % (auto) 61.3 %; Platelet Count 162 K/uL (130-400); RDW Coefficient of Variation 13.5 % (11.5-14.5); RDW Standard Deviation 42.2 fL (36.4-46.3); Red Blood Count 5.25 M/uL (4.70-6.10)
[2023-12-09 04:40] LABS: BUN Creatinine Ratio 13.2 (10-20); Calcium 8.9 mg/dl (8.6-10.3); Creatinine Clr Calc Pharmacy 79.8 ml/min; Est GFR (African American) 84.9 ml/min; Est GFR (Non-African American) 73.3 ml/min; Potassium 3.8 mmol/L (3.5-5.1)
[2023-12-09 04:47] LABS: Troponin I High Sensitivity 6.9 pg/ml (0-20)
--- OUTSIDE RECORDS SUMMARY | 2023-12-09 06:40 | External Medical Summary | Summary of Care ---
Author Name Unknown Organization [facility] Address [address] [facility] [place] [address] Phone [phone] Care Team Providers Care Lab Animal Technician Name Role Phone Kamryn Brandon DO Primary Care Provider [phone] Reason for Visit * Reason Onset Date Comments Health Maintenance 08/19/2023 Encounter Details Date Type Department Care Team (Late st Contact Info) Description 08/19/2023 Telephone Family Practice [facility] [address] [place] [address] Kamryn Brandon DO [address] [place] [address] Health Maintenance Allergies Active Allergy Reactions Criticality Noted Date Comments No Known Drug Allergy 10/29/2004 documented as of this encounter (statuses as of 08/19/2023) Medications Medication Sig Dispensed Refills Start Date End Date Status Cholecalciferol (VITAMIN D) 2000 UNITS Capsule Take 2,000 Units by mouth at bedtime. 0 Active Aspirin 81 MG Tablet Take 1 Tablet by mouth in the morning. 0 Active Fiber, Winn Dextrin, POWD Take by mouth. 0 Active Polyethylene Glycol 3350 17 GM/SCOOP Oral Powder Take 17 g by mouth in the morning. 0 Active Gabapentin 400 MG Oral Capsule (Neurontin)Indicati ons:RLS (restless legs syndrome) Take 1 Capsule by mouth at bedtime. 30 Capsule 5 06/24/2023 Active Omeprazole 20 MG Oral Capsule Delayed Release (PriLOSEC)Indicatio ns:Hiatal hernia Take 1 Capsule by mouth in the morning and 1 Capsule before bedtime. 60 Capsule 5 08/05/2023 Active Atorvastatin Calcium 40 MG Oral Tablet (Lipitor)Indication s:Mixed dyslipidemia Take 1 Tablet by mouth in the morning. 90 Tablet 0 08/05/2023 Active Additional Information Patient taking differently:40 mg OralHS, Reported on 08/14/2023 documented as of this encounter (statuses as of 08/19/2023) Active Problems Problem Noted Date Diagnosed Date Obesity, Class I, BMI 30.0-34.9 (see actual BMI) 04/16/2022 Hepatic steatosis 06/26/2021 RLS (restless legs syndrome) 03/14/2021 Gastroesophageal reflux disease with esophagitis 04/26/2019 Diverticulosis, sigmoid 04/26/2019 Chronic constipation 04/26/2019 History of pulmonary embolism 01/07/2017 Overview: Anticipate stopping coumadin in jul 2017. 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 Dyslipidemia 03/12/2001 documented as of this encounter (statuses as of 08/19/2023) Resolved Problems Problem Noted Date Diagnosed Date Resolved Date Elevated LFTs 04/25/2021 04/16/2022 Hyperlipidemia 03/14/2021 04/16/2022 Hordeolum externum of left lower eyelid 03/14/2021 04/16/2022 Elevated ferritin 03/14/2021 04/16/2022 Eyelid abnormality 03/14/2021 S/P TKR (total knee replacement), left 12/06/2019 04/16/2022 Acute deep vein thrombosis ( DVT) of distal vein of left lower extremity 12/23/2017 01/21/2019 Snoring 07/25/2015 04/26/2019 Knee pain, left 01/28/2014 04/26/2019 General medical exam 11/15/2011 013 TUBULAR ADENOMA POLYPS OF COLON 12/26/2008 06/19/2017 ADVANCE DIRECTIVE INFORMATION 2006 04/26/2019 Overview: Info given to pt FAMILY HX RAHAT.NEOPLASM PROSTATE - Dad 05/06/2002 04/26/2019 LUMBAGO 03/12/2001 07/25/2015 Irritable bowel syndrome documented as of this encounter (statuses as of 08/19/2023) Immunizations Name Administration Dates Next Due COVID-19 mRNA, LNP-s, No Pre serve, 2-Dose Series (Pfizer) 03/01/2022,08/03/2021,12/21/2020,2020 COVID-19, MRNA-LNP, 23-24, P F, 30 MCG/0.3 mL, 12 YRS AND ABOVE, IM (PFIZER-Comirnaty) 07/07/2023 Rsv Vac., Recomb, Adjuvant, Pf,0.5 Ml (Arexvy) 07/07/2023 SEASONAL INFLUENZA, PF, 6 M & Above, IM , (FLULAVAL or FLUZONE) 06/24/2022,06/14/2021,07/15/2020,2018 Seasonal Influenza Vac, Quad , Cell Cult, PF, 6 Mos and Up, IM, (Flucelvax Quad) 07/07/2023 Seasonal Influenza, Quadriva lent, No Preserve, IM 06/19/2017,07/25/2015 Seasonal Influenza, Split, I IV3, With Preserve, Inj 06/12/2012 TDAP (age 10 and older)(Boostrix) 11/05/2022,04/2012 Zoster Vaccine Recombinant (Shingrix) 01/17/2020 ,11/16/2019 documented as of this encounter Social History Tobacco Use Types Packs/Day Years Used Date Smoking Tobacco: Never Smokeless Tobacco: Former Snuff Quit: 10/06/1984 Alcohol Use Standard Drinks/Week Comments Yes 0 (1 standard drink = 0.6 oz pur e alcohol) occasionally PHQ-2 Answer Date Recorded PHQ Adult Total Score 0 11/05/2022 Hunger Vital Sign Answer Date Recorded Within the past 12 months, y ou worried that your food would run out before you got the money to buy more. Never true 04/25/20 21 Within the past 12 months, t he food you bought just didn't last and you didn't have money to get more. Never true 04/25/2021 Sex and Gender Information Value Date Recorded Sex Assigned at Not on file Gender Identity Not on file Sexual Orientation Not on file Job Start Date Occupation Industry Not on file Not on file Not on file documented as of this encounter Functional Status Functional Status Response Date of Assess ment Are you deaf or do you have serious difficulty hearing? No 12/06/2019 Are you blind or do you have serious difficulty seeing, even when wearing glasses? No 12/06/2019 Do you have serious difficul ty walking or climbing stairs? (5 years old or older) No-pain in knee from arthritis 12/06/2019 Do you have difficulty dress ing or bathing? (5 years old or older) No 12/06/2019 Because of a physical, menta l, or emotional condition, do you have difficulty doing errands alone such as visiting a doctor s office or shopping? (15 years old or older) No 12/06/2019 Cognitive Status Response Date of Assessm ent Because of a physical, menta l, or emotional condition, do you have serious difficulty concentrating, remembering, or making decisions? (5 years old or older) No 12/06/2019 documented as of this encounter Miscellaneous Notes * Telephone Encounter - Carli Garcia LPN - 08/19/2023 3:13 PM EST Care Gaps Comprehensive Care Outreach Last Office/Telemedicine Visit: 05/23/2023 (in office), Visit date not found (telemedicine) Next Office Visit: 11/11/2023 Hemoglobin AIC Results: Lab Results Component Value Date/Time HEMOGLOBIN A1C - [facility] 5.6 11/17/2019 12:34 PM Reviewed Health Maintenance below: Health Maintenance Topic Date Due HIV Screening Never done Depression Screening 11/05/2023 Diabetes Screening 08/08/2026 Care Gap Outreach Action Taken: Outreach not indicated documented in this encounter Plan of Treatment Upcoming Encounters Date Type Department Care Team (Late st Contact Info) Description 11/10/2023 9:30 AM EST Office Visit Gastroenterology, [facility] [address] [place] [address] Mary Ann Miranda CRNP [address] [place] [id number] 11/11/2023 8:00 AM EST Office Visit Family Practice [facility] [address] [place] [address] Kamryn Brandon DO [address] [place] [id number] Scheduled Procedures Name Priority Associated Diagnoses Date/Ti me COLONOSCOPY FLEXIBLE PROXIMAL DIAGNOSTIC Recall History of colon polyps 08/19/2023 9:16 AM EST Health Maintenance Due Date Last Done Comments HIV Screening 1975 Depression Screening 11/05/2023 11/05/2022 Diabetes Screening 08/08/2026 08/08/2023, 0 04/17/2022, 02/14/2021, Additional history exists COLONOSCOPY-EVERY 3 YRS AGES 18-100 08/19/2026 08/19/2023, 07/18/2020, 07/18/2020, Additional history exists Lipid Panel 08/08/2028 08/08/2023, 04/05, 02/14/2021, Additional history exists DTaP,Tdap,and Td Vaccines (3 - Td or Tdap) 11/05/2032 11/05/2022, 06/12/2012, 03/15/2004, Additional history exists Hepatitis B Completed 12/10/1997, 07/06, 05/27/1997 Zoster Vaccines Completed 01/17/2020, 11/16/2019 COVID-19 Vaccine Completed 07/07/2023, , 08/03/2021, Additional history exists Influenza Vaccine (FLU shot) Completed 11/2022, 06/24/2022, 06/14/2021, Additional history exists GARDASIL-HPV IMMUNIZATION SERIES Aged Out No longer eligible based on patient's age to complete this topic MENINGOCOCCAL (MENACTRA/MENVEO) Aged Out No longer eligible based on patient's age to complete this topic Pneumococcal Vaccine: Pediatrics (0 to 5 Years) and At-Risk Patients (6 to 64 Years) Aged Out No longer eligible based on patient's age to complete this topic documented as of this encounter Medical Devices Implanted Type Area Certified Hyperbaric Technologist Device Identifier Shelf Expiration Date Model / Serial / Lot Triathlon Tibial Bearing Insert -Cr Implanted:Qty: 1 on 12/06/2019 by Manny Lake DO at [facility] Left: Knee TABATHA : ORTHOPAEDICS 04/11/2024 [id number] / / [id number] documented as of this encounter Advance Directives Latest Code Status on File Code Status Date Activated Date Inactivated Comments Full Code 12/06/2019 9:33 AM 12/07/2019 5:46 PM This or rogelio reflects the patients wishes and were consensually agreed upon. Question Answer Comments Discussion of Advance Directives occurred with: Patient Does the patient have a Living Will? No Does the patient have Health Care Power of Activities Attendant? No Care Teams Lab Animal Technician Relationship Specialty Start Date End Date Kamryn Brandon DO [address] [place] [address] PCP - General Family Medicine 01/06/18 documented as of this encounter
--- OUTSIDE RECORDS SUMMARY | 2023-12-09 06:40 | External Medical Summary | Summary of Care ---
Author Name Unknown Organization [facility] Address [address] [place] [address] Phone [phone] Care Team Providers Care [employer] Name Role Phone Rohan Brandona Nohelia ELIZONDO Primary Care Provider [phone] Reason for Visit * Auth/Cert Specialty Diagnoses / Procedures Referred By Trav t Referred To Contact Diagnoses History of colon polyps History of colon polyps [Z86.010] Procedures COLONOSCOPY, DIAGNOSTIC (RECTUM) COLONOSCOPY FLEXIBLE PROXIMAL DIAGNOSTIC Referral ID Status Reason Start Date Expiration Date Visits Re quested Visits Authorized [id number] Encounter Details Date Type Department Care Team (Latest Contact Info) Description 08/19/2023 7:47 AM EST - 08/19/2023 10:09 AM EST Hospital Encounter [facility], Endoscopy Room [facility] [address] [place] [id number] Wyatt Franklin MD [address] [place] [id number] Colonoscopy Discharge Disposition: Home - Self Care Allergies Active Allergy Reactions Criticality Noted Date Comments No Known Drug Allergy 10/29/2004 documented as of this encounter (statuses as of 08/19/2023) Medications Medication Sig Dispensed Refills Start Date End Date Status Cholecalciferol (VITAMIN D) 2000 UNITS Capsule Take 2,000 Units by mouth at bedtime. 0 Active Aspirin 81 MG Tablet Take 1 Tablet by mouth in the morning. 0 Active Fiber, Mcfarland Dextrin, POWD Take by mouth. 0 Active Polyethylene Glycol 3350 17 GM/SCOOP Oral Powder Take 17 g by mouth in the morning. 0 Active Gabapentin 400 MG Oral Capsule (Neurontin)Indica tions:RLS (restless legs syndrome) Take 1 Capsule by mouth at bedtime. 30 Capsule 5 06/24/2023 Active Omeprazole 20 MG Oral Capsule Delayed Release (PriLOSEC)Indicat ions:Hiatal hernia Take 1 Capsule by mouth in the morning and 1 Capsule before bedtime. 60 Capsule 5 08/05/2023 Active Atorvastatin Calcium 40 MG Oral Tablet (Lipitor)Indicati ons:Mixed dyslipidemia Take 1 Tablet by mouth in the morning. 90 Tablet 0 08/05/2023 Active Additional Information Patient taking differently:40 mg OralHS, Reported on 08/14/2023 POTASSIUM 99 MG PO TABS one pill each day 0 08/14/20 23 Discontinued documented as of this encounter (statuses as [...] Elevated ferritin 03/14/2021 04/16/2022 Eyelid abnormality 03/14/2021 2 S/P TKR (total knee replacement), left 12/06/2019 04/16/2022 Acute deep vein thrombosis ( DVT) of distal vein of left lower extremity 12/23/2017 01/21/2019 Snoring 07/25/2015 04/26/2019 Knee pain, left 01/28/2014 04/26/2019 General medical exam 11/15/2011 013 TUBULAR ADENOMA POLYPS OF COLON 12/26/2008 06/19/2017 ADVANCE DIRECTIVE INFORMATION 2006 04/26/2019 Overview: Info given to pt FAMILY GUNJAN GIANG.NEOPLASM PROSTATE - Dad 05/06/2002 04/26/2019 LUMBAGO 03/12/2001 07/25/2015 Irritable bowel syndrome documented as of this encounter (statuses as of 08/19/2023) Immunizations Name Administration Dates Next Due COVID-19 mRNA, LNP-s, No Pre serve, 2-Dose Series ([employer]) 03/01/2022,08/03/2021,12/21/2020,2020 COVID-19, MRNA-LNP, 23-24, P F, 30 [...] on file documented as of this encounter Last Filed Vital Signs Vital Sign Reading Time Taken Comments Blood Pressure 117/81 08/19/2023 9:52 AM EST Pulse 60 08/19/2023 9:52 AM EST Temperature 36.6 C (97.8 F) 08/19/2023 9:52 AM ES T Respiratory Rate 16 08/19/2023 9:52 AM EST Oxygen Saturation 99% 08/19/2023 9:52 AM EST Inhaled Oxygen Concentration - - Weight 99.8 kg (220 lb) 08/19/2023 8:17 AM EST Height 172.7 cm (5' 7.99") 08/19/2023 8:17 AM ES T Body Mass Index 33.46 08/19/2023 8:17 AM EST documented in this encounter Functional Status Functional Status Response [...] No 12/06/2019 documented as of this encounter H&P Notes * Wyatt Franklin MD - 08/19/2023 9:07 AM EST Procedure(s): Colonoscopy; with Indication(s) of colon polyp surveillance Endoscopy Pre-Procedure Assessment: Prior to the procedure, the patient was identified. The patient's history, medications and allergies were reviewed as per the Anesthesia Assessment. The patient is competent. The risks and benefits of the proposed procedure and the planned sedation were discussed with the patient. All questions were answered and informed consent for the procedure was obtained. BP 160/73 | Pulse 70 | Temp 36.6 C (97.9 F) (Tympanic) | Resp 19 | Ht 1.727 m (5' 7.99") | Wt 99.8 kg (220 lb) | SpO2 99% | BMI 33.46 kg/m | BSA 2.19 m Physical Exam: Mental Status Examination: alert and oriented. Airway Examination: normal oropharyngeal airway and neck mobility. Respiratory Examination: clear to auscultation. CV Examination: normal. ASA Grade: II - A patient with mild systemic disease. Patient was explained in detail regarding risks, benefits, limitations and alternatives of the above endoscopic procedure. Risks of intravenous sedation used for procedure were also explained. Risks include, but not limited to perforation, bleeding, infection, respiratory distress, cardiac arrest and . Patient is also aware about the possibility of missed lesions. Patient's questions were answered. The patient verbalized understanding of the information and agreed to undergo the procedure. After reviewing the risks and benefits, the patient was deemed in satisfactory condition to undergothe procedure. The anesthesia plan is to use general anesthesia. documented in this encounter Procedure Notes * Kamryn Brandon DO - 08/19/2023 9:08 AM ESTAssociated Order(s): COLONOSCOPY [facility] Patient Name: Haider Dugan Procedure Date: 08/19/2023 9:08 AM Date of : 1960 Admit Type: Outpatient Note Status: Finalized Date of : 1960 Admit Type: Outpatient Age: 62 Room: [facility] 3 Gender: Male Note Status: Finalized Procedure: Colonoscopy Indications: High risk colon cancer surveillance: Personal history of multiple (3 or more) adenomas Providers: Wyatt Franklin MD (Doctor), Vianey Bennett, RN, Chasity Abad CRNA (Anesthesia Staff) Referring MD: Kamryn Brandon DO (Referring MD) Medicines: See the Anesthesia note for documentation of the administered medications Complications: No immediate complications. Procedure: Pre-Anesthesia Assessment: - - Patient identification and proposed procedure were verified prior to the procedure by the physician and the nurse. The procedure was verified in the procedure area. - Prior to the procedure, a History and Physical was performed, and patient medications, allergies and sensitivities were reviewed. The patient's tolerance of previous anesthesia was reviewed. - The risks and benefits of the procedure and the sedation options and risks were discussed with the patient. All questions were answered and informed consent was obtained. After I obtained informed consent, the scope was passed under direct vision. All instruments were visually inspected immediately before and after removal from the patient to ensure they are fully intact. Throughout the procedure, the patient's blood pressure, pulse, and oxygen saturations were monitored continuously. The [id number] Colonoscope ([id number]) was introduced through the anus and advanced to the cecum, identified by appendiceal orifice and ileocecal valve. The colonoscopy was performed without difficulty. The patient tolerated the procedure well. The quality of the bowel preparation was good. Findings & Specimens: The perianal and digital rectal examinations were normal. A 6 mm polyp was found at 50 cm proximal to the anus. The polyp was semi- sessile. The polyp was removed with a cold snare. Resection and retrieval were complete. Verification of patient identification for the specimen was done by the physician and nurse using the patient's name and medical record number. Estimated blood loss was minimal. The exam was otherwise without abnormality on direct and retroflexion views. Impression: - One 6 mm polyp at 50 cm proximal to the anus, removed with a cold snare. Resected and retrieved. - The examination was otherwise normal on direct and retroflexion views. Recommendation: - Await pathology results. - Discharge patient to home. Wyatt Franklin MD 08/19/2023 9:40:16 AM This report has been signed electronically. documented in this encounter Nursing Notes * iLlian Umana RN - 08/19/2023 10:08 AM EST All discharge instructions discussed. Paper copy of discharge information and procedure report given to him to take home. Escorted to the vehicle by PACU staff. Ambulates well. * Lilian Umana RN - 08/19/2023 9:[address] Franklin in to visit pt and discusses his procedure with him. Sitting upright, sipping an ava at intervals. * Lilian Umana RN - 08/19/2023 9:37 AM EST Late entry: received pt into PACU II, room 2 via stretcher from the ENDO procedure room s/p colonoscopy. VSS. Awake and conversing with staff members appropriately. O2 sats 98% on RA, resps easy and unlabored. IV fluids infusing to his right AC without issue. Denies pain or nausea. * Vianey Bennett RN - 08/19/2023 9:36 AM EST Specimen(s) and location(s) verified with physician post procedure 9:36 AM Vianey Bennett RN Pt kaern colonoscopy w/ polypectomy well. Abd soft post proc. To recovery lying on L side. Pre cleaning of scope at the bedside started by quality systems technician. * Katherin Luong RN - 08/19/2023 8:40 AM EST The following pt discharge instructions reviewed with pt prior to prodedure: No driving today. No alcohol today. No signing of legal documents. Rest as much as possible today and can return to normal activities tomorrow. No operating any heavy equipment today. Diet as tolerated. Pt verbalized understanding. documented in this encounter Plan of Treatment Upcoming Encounters Date Type Department Care Team (Late st Contact Info) Description 11/10/2023 9:30 AM EST Office Visit Gastroenterology, [facility] [address] [facility] [place] [id number] Mary Ann Miranda CRNP [address] [place] [address] 11/11/2023 8:00 AM EST Office Visit Family Practice [facility] [address] [place] [address] Kamryn Brandon DO [address] [facility] [place] [id number] Pending Results Name Type Priority Associated Diagnoses Date /Time SURGICAL PATHOLOGY Pathology Routine History of colon polyps 08/19/2023 9:37 AM EST Scheduled Orders Name Type Priority Associated Diagnoses Orde r Schedule SURGICAL PATHOLOGY Pathology Routine History of colon polyps Release Upon Ordering for 1 Occurrences starting 08/19/2023 Scheduled Procedures Name Priority Associated Diagnoses Date/Ti [...] this encounter Medical Devices Implanted Type Area Job Hand Device Identifier Shelf Expiration Date Model / Serial / Lot Triathlon Tibial Bearing Insert -Cr Implanted:Qty: 1 on 12/06/2019 by Manny Lake DO at OR [facility] Left: Knee TABATHA : ORTHOPAEDICS 04/11/2024 [id number] / / [id number] documented as of this encounter Procedures Procedure Name Priority Date/Time Associated Diagnosis Comments COLONOSCOPY 08/19/2023 9:08 AM EST documented in this encounter Results * COLONOSCOPY (08/19/2023 9:08 AM EST) 08/19/2023 9:08 AM EST Narrative Procedure Note Kamryn Brandon DO - 08/19/2023 9:08 AM EST [facility] Patient Name: Haider Dugan Procedure Date: 08/19/2023 9:08 AM Date of : 1960 Admit Type: Outpatient Note Status:Finalized Date of : 1960 Admit Type: Outpatient Age: 62 Room: [facility] 3 Gender: Male Note Status: Finalized Procedure: Colonoscopy Indications: High risk colon cancer surveillance: Personalhistory of multiple (3 or more) adenomas Providers: Wyatt Franklin MD (Doctor), Vianey Bennett,RN, Chasity Abad CRNA (Anesthesia Staff) Referring MD: Kamryn Brandon DO (Referring MD) Medicines: See the Anesthesia note for documentation of theadministered medications Complications: No immediate complications. Procedure: Pre-Anesthesia Assessment: - - Patient identification and proposed procedurewere verified prior to the procedure by the physician and the nurse. Theprocedure was verified in the procedure area. - Prior to the procedure, a History and Physicalwas performed, and patient medications, allergies and sensitivities werereviewed. The patient's tolerance of previous anesthesia was reviewed. - The risks and benefits of the procedure and thesedation options and risks were discussed with the patient. All questions wereanswered and informed consent was obtained. After I obtained informed consent, the scope waspassed under direct vision. All instruments were visually inspected immediatelybefore and after removal from the patient to ensure they are fully intact. Throughout the procedure, the patient's bloodpressure, pulse, and oxygen saturations were monitored continuously. The [id number] ([id number]) was introduced through the anus and advanced to the cecum,identified by appendiceal orifice and ileocecal valve. The colonoscopy was performedwithout difficulty. The patient tolerated the procedure well. The quality of thebowel preparation was good. Findings & Specimens: The perianal and digital rectal examinations were normal. A 6 mm polyp was found at 50 cm proximal to the anus. The polyp wassemi-sessile. The polyp was removed with a cold snare. Resection and retrieval were complete.Verification of patient identification for the specimen was done by the physician and nurse using the patient'sname and medical record number. Estimated blood loss was minimal. The exam was otherwise without abnormality on direct and retroflexionviews. Impression: - One 6 mm polyp at 50 cm proximal to the anus,removed with a cold snare. Resected and retrieved. - The examination was otherwise normal on directand retroflexion views. Recommendation: - Await pathology results. - Discharge patient to home. Wyatt Franklin MD 08/19/2023 9:40:16 AM This report has been signed electronically. Kamryn Brandon DO [facility] documented in this encounter Visit Diagnoses Diagnosis History of colon polyps Personal history of colonic polyps documented in this encounter Administered Medications Inactive Administered Medications - up to 3 most recent administrations Medication Order MAR Action Action Date Dose Rate Site isolyte-S pH 7.4 infusion Intravenous, at 100 mL/hr, Plasma-LYTE 148, isolyte-S, and isolyte-S pH 7.4 are considered equivalent - including for MAR barcode scanning., CONTINUOUS, Starting on Fri08/19/23 at 0900, Until Fri08/19/23 at 1409, Pre-Op Continue from Pre-Op 08/19/2023 9:13 AM EST 100 mL/hr New Bag 08/19/2023 8:47 AM EST 100 mL/hr documented in this encounter Active and Recently Administered Medications Times are shown in EST. Continuous Medication Order 08/17/2023 08/18/2023 08/19/2023 isolyte-S pH 7.4 infusion Intravenous, at 100 mL/hr, Plasma-LYTE 148, isolyte-S, and isolyte-S pH 7.4 are considered equivalent - including for MAR barcode scanning., CONTINUOUS, Starting on Fri08/19/23 at 0900, Until Fri08/19/23 at 1409, Pre-Op 0847 (New Bag - Prov ider: aKtherin Luong RN)0913 (Continue from Pre-Op - Provider: Chasity Abad CRNA)0933 (Anes Intra-Op Fluid - Provider: Chasity Abad CRNA) documented in this encounter Advance Directives Latest Code Status on File Code Status Date Activated Date Inactivated Comments Full Code 12/06/2019 9:33 AM 12/07/2019 5:46 PM This or rogelio reflects the patients wishes and were consensually agreed upon. Question Answer Comments Discussion of Advance Directives occurred with: Patient Does the patient have a Living Will? No Does the patient have Health Care Power of Safety Engineer? No Care Teams [employer] Relationship Specialty Start Date End Date Kamryn Brandon DO [address] [place] [id number] PCP - General Family Medicine 01/06/18 documented as of this encounter
--- OUTSIDE RECORDS SUMMARY | 2023-12-09 06:40 | External Medical Summary | Summary of Care ---
Author Name Unknown Organization [facility] Address [address] [facility] [place] [address] Phone [phone] Care Team Providers Care Residential Carpenter Name Role Phone Kamryn Brandon DO Primary Care Provider [phone] Reason for Visit * Reason Comments Physical-Exam Pt here for annual C PE today, has no current issues at this time Encounter Details Date Type Department Care Team (Late st Contact Info) Description 11/11/2023 8:00 AM EST Office Visit Family [facility] [address] [place] [address] Kamryn Brandon DO [address] [place] [address] Well adult exam*; Gastroesophageal reflux disease with esophagitis without hemorrhage; RLS (restless legs syndrome); Hepatic steatosis; Need for pneumococcal vaccination Allergies Active Allergy Reactions Criticality Noted Date Comments No Known Drug Allergy 10/29/2004 documented as of this encounter (statuses as of 11/11/2023) Medications Medication Sig Dispensed Refills Start Date End Date Status Cholecalciferol (VITAMIN D) 2000 UNITS Capsule Take 2,000 Units by mouth at bedtime. 0 Active Aspirin 81 MG Tablet Take 1 Tablet by mouth in the morning. 0 Active Fiber, [place] Dextrin, POWD Take by mouth. 0 Active Polyethylene Glycol 3350 17 GM/SCOOP Oral Powder Take 17 g by mouth in the morning. 0 Active Gabapentin 400 MG Oral Capsule (Neurontin)Indication s:RLS (restless legs syndrome) Take 1 Capsule by mouth at bedtime. 30 Capsule 5 06/24/2023 Active Omeprazole 20 MG Oral Capsule Delayed Release (PriLOSEC)Indications :Hiatal hernia Take 1 Capsule by mouth in the morning and 1 Capsule before bedtime. 60 Capsule 5 08/05/2023 Active Atorvastatin Calcium 40 MG Oral Tablet (Lipitor)Indications: Mixed dyslipidemia Take 1 Tablet by mouth in the morning. 90 Tablet 1 10/28/2023 Active documented as of this encounter (statuses as of 11/11/2023) Active Problems Problem Noted Date Diagnosed Date [...] as of this encounter (statuses as of 11/11/2023) Resolved Problems Problem Noted Date Diagnosed Date [...] as of this encounter (statuses as of 11/11/2023) Immunizations Name Administration Dates Next Due COVID-19 mRNA, LNP-s, No Pre serve, 2-Dose Series (Pfizer) 03/01/2022,08/03/2021,12/21/2020,2020 COVID-19, MRNA-LNP, 23-24, P F, 30 MCG/0.3 mL, 12 YRS AND ABOVE, IM (PFIZER-Comirnaty) 07/07/2023 Pneumococcal Conjugate Vacci ne, 20-valent ([id number]) 11/11/2023 RSV Vac., Recomb, Adjuvant, PF,0.5 Ml (Arexvy) 07/07/2023 Seasonal Influenza Vac, Quad , Cell Cult, PF, 6 Mos and Up, IM, (Flucelvax Quad) 07/07/2023 Seasonal Influenza, PF, 6 M & above, IM , (FluLaval or Fluzone) 06/24/2022,06/14/2021,07/15/2020,2018 Seasonal Influenza, Quadriva lent, No Preserve, IM [...] Sign Reading Time Taken Comments Blood Pressure 118/80 11/11/2023 7:49 AM EST Pulse 55 11/11/2023 7:49 AM EST Temperature 35.6 C (96.1 F) 11/11/2023 7:49 AM ES T Respiratory Rate 16 11/11/2023 7:49 AM EST Oxygen Saturation - - Inhaled Oxygen Concentration - - Weight 100.7 kg (222 lb) 11/11/2023 7:49 AM EST Height - - Body Mass Index 33.76 08/19/2023 8:17 AM EST documented in this [...] No 12/06/2019 documented as of this encounter Patient Instructions * Patient Instructions* Farheen Jackson LPN - 11/11/2023 7:53 AM EST ~~PATIENT INSTRUCTIONS FOR PNEUMOCOCCAL VACCINE~~ Possible side effects of pneumococcal vaccine, (pneumonia shot), are usually mild and can include: 1. Soreness or redness at injection site 2. Low grade fever 3. Body aches You may use Tylenol/Acetaminophen as needed for these symptoms. LET YOUR DOCTOR KNOW IMMEDIATELY IF YOU HAVE DIFFICULTY BREATHING OR SWALLOWING, EXPERIENCE ITCHINGOF FEET OR HANDS, HAVE SWELLING OF EYES, FACE OR INSIDE OF NOSE. documented in this encounter Progress Notes * Kamryn Brandon, - 11/11/2023 8:17 AM EST Subjective: Haider Dugan is a 63 year old male. Chief Complaint Patient presents with Physical-Exam Pt here for annual CPE today, has no current issues at this time HPI: Pt presents for physical today, doing well, no concerns. RLS controlled w/gabapentin 400mg at bedtime. GERD sx stable on BID omeprazole. 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 Aspirin 81 MG Tablet Take 1 Tablet by mouth in the morning. Fiber, [place] Dextrin, POWD Take by mouth. Polyethylene Glycol 3350 17 GM/SCOOP Oral Powder Take 17 g by mouth in the morning. Gabapentin 400 MG Oral Capsule (Neurontin) Take 1 Capsule by mouth at bedtime. 30 Capsule 5 Omeprazole 20 MG Oral Capsule Delayed Release (PriLOSEC) Take 1 Capsule by mouth in the morning and1 Capsule before bedtime. 60 Capsule 5 Atorvastatin Calcium 40 MG Oral Tablet (Lipitor) Take 1 Tablet by mouth in the morning. 90 Tablet 1 No current facility-administered medications for this visit. Past Medical History: Diagnosis Date Benign neoplasm of colon 12/22/08 (2) tubular adenomas--repeat 5 years Diverticulosis, sigmoid 04/26/2019 GERD (gastroesophageal reflux disease) Irritable bowel syndrome Obesity, Class I, BMI 30.0-34.9 (see actual BMI) 04/16/2022 S/P TKR (total knee replacement), left 12/06/2019 Past Surgical History: Procedure Laterality Date ARTHROPLASTY KNEE TOTAL Left 12/06/2019 ARTHROPLASTY KNEE TOTAL performed by Manny Lake DO at OR [facility] COLONOSCOPY, DIAGNOSTIC (RECTUM) 03/02/2014 adenomatous polyps, repeat 3 yrs/COLONOSCOPY FLEXIBLE PROXIMAL DIAGNOSTIC performed by Richi Wallace MD at ENDOSCOPY [facility] COLONOSCOPY, DIAGNOSTIC (RECTUM) 07/22/2017 adenomatous polyp, repeat 3 yrs/COLONOSCOPY FLEXIBLE PROXIMAL DIAGNOSTIC performed by Wyatt Franklin MD at ENDOSCOPY [facility] COLONOSCOPY, DIAGNOSTIC (RECTUM) 07/18/2020 adenomatous polyps, repeat 3 yrs / COLONOSCOPY FLEXIBLE PROXIMAL DIAGNOSTIC performed by Wyatt Franklin MD at ENDOSCOPY [facility] COLONOSCOPY, DIAGNOSTIC (RECTUM) 08/19/2023 biopsies show adenomatous polyps/recall 3 years/COLONOSCOPY FLEXIBLE PROXIMAL DIAGNOSTIC performed by Wyatt Franklin MD at ENDOSCOPY [facility] COLONOSCOPY, REMOVE LESION 12/22/2008 (2) tubular adenomas--repeat 5 years DENTAL SURGERY PROCEDURE NEC [place] teeth removed. ENDOSCOPY, ERCP, REPAIR SPHINCTER 11/25/2006 EUA Lateral interal sphincterotomy by Dr. Melvin HOLTER MONITOR 06/21/1998 REMOVE TONSILS & ADENOIDS, UNDER 12 THIGH OR KNEE SURGERY NEC Left 2013 left knee repair Review of patient's allergies indicates: Allergen Reactions No Known Drug Allergy Objective: BP 118/80 | Pulse 55 | Temp 35.6 C (96.1 F) (Tympanic) | Resp 16 | Wt 100.7 kg (222 lb) | BMI 33.76 kg/m | BSA 2.2 m Review of Systems: As per HPI, all other ROS neg. Physical Exam: General: alert, healthy, no distress, well nourished and well developed Head: Normocephalic, No masses, lesions, tenderness or abnormalities Ears: External ears normal, Canals clear, TM's Normal Nose: no mucosal erythema, no mucosal edema, no purulent discharge, no septal hematoma Oropharynx: no exudate, no erythema, lips, buccal mucosa, and tongue normal and mucous membranes are moist Neck: supple, no adenopathy, thyroid normal size, non-tender, without nodularity Heart: regular rate & rhythm, no murmurs and no gallops Lungs: chest symmetric with normal AP diameter, no chest deformities noted, lungs clear to auscultation Abdomen: abdomen soft, non-tender, normal bowel sounds and no masses or organomegaly Extremities: no joint deformities, effusion, or inflammation, no edema, no clubbing, no cyanosis Well adult exam (Primary) all appropriate HM items addressed Including genitourinary (pap, mammo, psa), colon cancer screening and immunizations as indicated by patient sex, age and history Gastroesophageal reflux disease with esophagitis without hemorrhage Cont omeprazole RLS (restless legs syndrome) Cont gabapentin Hepatic steatosis Lfts wnl Dyslipidemia - cont statin Need for pneumococcal vaccination - PNEUMOCOCCAL VACC, PCV20, IM ([id number]) Follow up: in 1 year(s). Kamryn Brandon DO * Farheen Jackson LPN - 11/11/2023 7:52 AM EST Immunization Administration Documentation Time Out Procedure Performed: Yes Patient Identified (Ask Name/Date of ): Yes Does the patient have a fever greater than 101 degrees today? No Patient allergic to latex? No VFC Stock: No Immunization(s) verified: Yes, Immunization Name: Prevnar 20 (PCV20), VIS Sheet(s) given: Yes Verified Side and Site: Yes Verified Shot(s) with Parent(s)/Patient: Yes documented in this encounter Plan of Treatment Upcoming Encounters Date Type Department Care Team (Late st Contact Info) Description 11/16/2024 8:00 AM EST Office Visit [facility] [address] [facility] [place] [address] Kamryn Brandon DO [address] [place] [address] Scheduled Procedures Name Priority Associated Diagnoses Date/Ti me COLONOSCOPY FLEXIBLE PROXIMA L DIAGNOSTIC Recall History of colonic polyps Health Maintenance Due Date Last Done Comments HIV Screening 1975 Depression Screening 11/05/2023 11/05/2022 Diabetes Screening 08/08/2026 08/08/2023, 0 04/17/2022, 02/14/2021, Additional history exists COLONOSCOPY-EVERY 3 YRS AGES 18-100 08/19/2026 08/19/2023, 08/19/2023, 07/18/2020, Additional history exists Lipid Panel 08/08/2028 08/08/2023, 04/05, 02/14/2021, Additional history exists DTaP,Tdap,and Td Vaccines (3 - Td or Tdap) 11/05/2032 11/05/2022, 06/12/2012, 03/15/2004, Additional history exists Hepatitis B Completed 12/10/1997, 07/06, 05/27/1997 Zoster Vaccines Completed 01/17/2020, 11/16/2019 COVID-19 Vaccine Completed 07/07/2023, , 08/03/2021, Additional history exists Influenza Vaccine (FLU shot) Completed 11/2022, 06/24/2022, 06/14/2021, Additional history exists Pneumococcal Vaccine: 65+ Years Completed 11/11/2023 GARDASIL-HPV IMMUNIZATION SERIES Aged Out No longer eligible based on patient's age to complete this topic MENINGOCOCCAL (MENACTRA/MENVEO) Aged Out No longer eligible based on patient's age to complete this topic documented as of this encounter Medical Devices Implanted Type Area Vein Access Technician Device Identifier Shelf Expiration Date Model / Serial / Lot Triathlon Tibial Bearing Insert -Cr Implanted:Qty: 1 on 12/06/2019 by Manny Lake, at OR [facility] Left: Knee TABATHA : ORTHOPAEDICS 04/11/2024 5530-G-610 [id number] / / [id number] documented as of this encounter Visit Diagnoses Diagnosis Well adult exam- Primary Routine general medical examination at a health care facility Gastroesophageal reflux disease with esophagitis without hemorrhage RLS (restless legs syndrome) Restless legs syndrome (RLS) Hepatic steatosis Other chronic nonalcoholic liver disease Need for pneumococcal vaccination Need for prophylactic vaccination against streptococcus pneumoniae (pneumococcus) documented in this encounter Advance Directives Latest [...] the patient have Health Care Power of Manager Of Pharmacy? No Care Teams Residential Carpenter Relationship Specialty Start Date End Date Kamryn Brandon DO [address] [place] [address] PCP - General Family Medicine 01/06/18 documented as of this encounter"
--- OUTSIDE RECORDS SUMMARY | 2023-12-09 06:40 | External Medical Summary | Summary of Care ---
Author Name Unknown Organization [facility] Address [address] [address] Phone [phone] Care Team Providers Care Brokerage Manager Name Role Phone Kamryn Brandon DO Primary Care Provider [phone] Reason for Visit * Reason Comments eRx-Medication Refill Encounter Details Date Type Department Care Team (Late st Contact Info) Description 11/25/2023 Refill Family Practice [facility] [address] [facility] [place] [address] Kaleb Brandon DO [address] [place] [address] RLS (restless legs syndrome) Allergies Active Allergy Reactions Criticality Noted Date Comments No Known Drug Allergy 10/29/2004 documented as of this encounter (statuses as of 11/26/2023) Medications Medication Sig Dispensed Refills Start Date End Date Status Cholecalciferol (VITAMIN D) 2000 UNITS Capsule Take 2,000 Units by mouth at bedtime. 0 Active Aspirin 81 MG Tablet Take 1 Tablet by mouth in the morning. 0 Active Fiber, [place] Dextrin, POWD Take by mouth. 0 Active Polyethylene Glycol 3350 17 GM/SCOOP Oral Powder Take 17 g by mouth in the morning. 0 Active Omeprazole 20 MG Oral Capsule Delayed Release (PriLOSEC)Indicati ons:Hiatal hernia Take 1 Capsule by mouth in the morning and 1 Capsule before bedtime. 60 Capsule 5 08/05/2023 Active Atorvastatin Calcium 40 MG Oral Tablet (Lipitor)Indicatio ns:Mixed dyslipidemia Take 1 Tablet by mouth in the morning. 90 Tablet 1 10/28/2023 Active Gabapentin 400 MG Oral Capsule (Neurontin)Indicat ions:RLS (restless legs syndrome) TAKE 1 CAPSULE BY MOUTH AT BEDTIME 30 Capsule 5 11/26/2023 Active Gabapentin 400 MG Oral Capsule (Neurontin)Indicat ions:RLS (restless legs syndrome) Take 1 Capsule by mouth at bedtime. 30 Capsule 5 06/24/2023 4 Discontinued documented as of this encounter (statuses as of 11/26/2023) Active Problems Problem Noted Date Diagnosed Date [...] as of this encounter (statuses as of 11/26/2023) Resolved Problems Problem Noted Date Diagnosed Date [...] as of this encounter (statuses as of 11/26/2023) Immunizations Name Administration Dates Next Due COVID-19 mRNA, LNP-s, No Pre serve, 2-Dose Series (Pfizer) 03/01/2022,08/03/2021,12/21/2020,2020 COVID-19, MRNA-LNP, 23-24, P F, 30 MCG/0.3 mL, 12 YRS AND ABOVE, IM (PFIZER-Comirnaty) 07/07/2023 Pneumococcal Conjugate Vacci ne, 20-valent ([id number]) 11/11/2023 RSV Vac., Recomb, Adjuvant, PF,0.5 Ml [...] encounter Miscellaneous Notes * Telephone Encounter - Zaire Tinsley MD - 11/26/2023 9:38 AM ESTSigned Prescriptions: Disp Refills Gabapentin 400 MG Oral Capsule (Neurontin) 30 Cap*5 Sig: TAKE 1 CAPSULE BY MOUTH AT BEDTIME Authorizing Provider: ZAIRE TINSLEY * Telephone Encounter - Lexi Henao LPN - 11/26/2023 7:59 AM ESTPending Prescriptions: Disp Refills Gabapentin 400 MG Oral Capsule [Pharmacy M*30 Cap*0 Sig: Take 1 Capsule by mouth at bedtime. * Telephone Encounter - Lexi Henao LPN - 11/26/2023 7:58 AM EST Did you pend patient's preferred pharmacy and medication before forwarding?yes Pharmacy: [facility] [place] Pending Prescriptions: Disp Refills Gabapentin 400 MG Oral Capsule (Neurontin*30 Cap*0 Sig: TAKE 1 CAPSULE BY MOUTH AT BEDTIME Last Visit: 11/11/2023 (in office), Visit date not found (telemedicine) Next Visit: 11/16/2024 If no future appointments scheduled, and last appointment is greater than a year ago, please schedule patient for a follow-up appointment Last date the medication was ordered: 06/24/2023 Is this request for a controlled substance?No Urine Drug Screen:No results found for this or any previous visit. Patient Phone Numbers [email or web address] [phone] Labs: Lab Results Component Value Date/Time CREAT 1.0 08/08/2023 11:39 AM CREAT 0.9 12/07/2019 05:27 AM POTASSIUM 4.4 08/08/2023 11:39 AM POTASSIUM 4.2 12/07/2019 05:27 AM TSH 3.37 08/08/2023 11:39 AM TSH 1.90 05/21/2019 12:00 AM TSH 1.80 05/13/2013 09:41 AM LDLCALC 79 08/08/2023 11:39 AM LDLCALC 83 01/21/2019 12:00 AM LDLCALC 115 01/07/2018 04:01 PM LDLDIRECT 88 02/14/2021 08:34 AM LDLDIRECT NOT APPLICABLE 01/07/2018 04:01 PM ALT 47 08/08/2023 11:39 AM ALT 51 (H) 11/17/2019 12:34 PM HGBA1C 5.6 11/17/2019 12:34 PM * Telephone Encounter - Chad Armenta - 11/25/2023 7:50 PM ESTPending Prescriptions: Disp Refills Gabapentin 400 MG Oral Capsule [Pharmacy M*30 Cap*0 Sig: Take 1Capsule by mouth at bedtime. documented in this encounter Plan of Treatment Upcoming Encounters Date Type Department Care Team (Late st Contact Info) Description 11/16/2024 8:00 AM EST Office Visit Family Practice [facility] [address] [place] [address] Kamryn Brandon DO [address] [place] [address] Scheduled Procedures Name Priority Associated Diagnoses Date/Ti [...] this encounter Medical Devices Implanted Type Area Applications Support Lead Device Identifier Shelf Expiration Date Model / Serial / Lot Baseplate #6 Tritanium - [id number] Implanted:Qty: 1 on 12/06/2019 by Manny Lake DO at OR [facility] Left: Knee TABATHA : ORTHOPAEDICS 10/30/2024 [id number] / / [id number] Description:TRIATHLON TRITAN IUM Tibial Component Tirathlon Tritanium Symmetric Patella Implanted:Qty: 1 on 12/06/2019 by Manny Lake DO at OR [facility] Left: Knee TABATHA 07/03/2024 [id number] / / [id number] Knee Triathlon Bead No Charanjit L 6 - [id number] Implanted:Qty: 1 on 12/06/2019 by Manny Lake DO at OR [facility] Left: Knee TABATHA : ORTHOPAEDICS 11/17/2024 [id number] / / [id number] Description:Triathlon [place] Retaining Femoral Triathlon Tibial Bearing Insert -Cr Implanted:Qty: 1 on 12/06/2019 by Manny Lake DO at OR [facility] Left: Knee TABATHA : ORTHOPAEDICS 04/11/2024 [id number] / / [id number] documented as of this encounter Visit Diagnoses Diagnosis RLS (restless legs syndrome) Restless legs syndrome (RLS) documented in this encounter Advance Directives Latest [...] the patient have Health Care Power of Corporate Accounting Manager? No Care Teams Brokerage Manager Relationship Specialty Start Date End Date Kamryn Brandon DO [address] [place] [address] PCP - General Family Medicine 01/06/18 documented as of this encounter
--- OUTSIDE RECORDS SUMMARY | 2023-12-09 06:40 | External Medical Summary | Summary of Care ---
Author Name Unknown Organization [facility] Address [address] [facility] [place] [address] Phone [phone] Care Team Providers Care Pipe Buffer Name Role Phone Zahira Meyer DO Primary Care Provider [phone] Reason for Visit * Reason Onset Date Comments Medication Refill 10/27/2023 Encounter Details Date Type Department Care Team (Late st Contact Info) Description 10/27/2023 Refill Family Practice [facility] [address] [place] [address] Zahira Meyer DO [address] [place] [address] Mixed dyslipidemia Allergies Active Allergy Reactions Criticality Noted Date Comments No Known Drug Allergy 10/29/2004 documented as of this encounter (statuses as of 10/28/2023) Medications Medication Sig Dispensed Refills Start Date End Date Status Cholecalciferol (VITAMIN D) 2000 UNITS Capsule Take 2,000 Units by mouth at bedtime. 0 Active Aspirin 81 MG Tablet Take 1 Tablet by mouth in the morning. 0 Active Fiber, [place] Dextrin, POWD Take by mouth. 0 Active Polyethylene Glycol 3350 17 GM/SCOOP Oral Powder Take 17 g by mouth in the morning. 0 Active Gabapentin 400 MG Oral Capsule (Neurontin)Indicat [...] the morning. 90 Tablet 1 10/28/2023 Active Atorvastatin Calcium 40 MG Oral Tablet (Lipitor)Indicatio ns:Mixed dyslipidemia Take 1 Tablet by mouth in the morning. 90 Tablet 0 08/05/2023 10/27/2023 Discontinued (Refill) documented as of this encounter (statuses as of 10/28/2023) Active Problems Problem Noted Date Diagnosed Date [...] as of this encounter (statuses as of 10/28/2023) Resolved Problems Problem Noted Date Diagnosed Date [...] Overview: Info given to pt FAMILY HX MALIG.NEOPLASM PROSTATE - Dad 05/06/2002 04/26/2019 LUMBAGO 03/12/2001 07/25/2015 Irritable bowel syndrome documented as of this encounter (statuses as of 10/28/2023) Immunizations Name Administration Dates Next Due COVID-19 mRNA, LNP-s, No Pre serve, 2-Dose Series (Pfizer) 03/01/2022,08/03/2021,12/21/2020,2020 COVID-19, MRNA-LNP, 23-24, P F, 30 MCG/0.3 mL, 12 YRS AND ABOVE, IM (PFIZER-Comirnaty) 07/07/2023 RSV Vac., Recomb, Adjuvant, PF,0.5 Ml (Arexvy) [...] encounter Miscellaneous Notes * Telephone Encounter - Isiah Vance RPh - 10/28/2023 10:10 AM ESTSigned Prescriptions: Disp Refills Atorvastatin Calcium 40 MG Oral Tablet (Li*90 Tab*1 Sig: Take 1 Tablet by mouth in the morning.Authorizing Provider: ZAHIRA MEYER User: ISIAH VANCE documented in this encounter Plan of Treatment Upcoming Encounters Date Type Department Care Team (Late st Contact Info) Description 11/10/2023 9:30 AM EST Office Visit Gastroenterology, [facility] [address] [place] [address] Mary Ann Miranda CRNP [address] [place] [address] 11/11/2023 8:00 AM EST Office Visit [facility] [address] [place] [address] Zahira Meyer DO [address] [place] [address] Scheduled Procedures Name Priority Associated Diagnoses Date/Ti me COLONOSCOPY FLEXIBLE PROXIMA L DIAGNOSTIC Recall History of colonic polyps Health Maintenance Due Date Last Done Comments HIV Screening 1975 Pneumococcal Vaccine: 65+ Years (1 - PCV) 2023 Depression Screening 11/05/2023 11/05/2022 Diabetes Screening 08/08/2026 [...] this encounter Medical Devices Implanted Type Area Screw Driver Operator Device Identifier Shelf Expiration Date Model / Serial / Lot Triathlon Tibial Bearing Insert -Cr Implanted:Qty: 1 on 12/06/2019 by Manny Lake DO at OR [facility] Left: Knee TABATHA : ORTHOPAEDICS 04/11/2024 [id number]-[id number] / / [id number] documented as of this encounter Visit Diagnoses Diagnosis Mixed dyslipidemia Mixed hyperlipidemia documented in this encounter Advance Directives Latest Code Status on File Code Status Date Activated Date Inactivated Comments Full Code 12/06/2019 9:33 AM 12/07/2019 5:46 PM This o rder reflects the patients wishes and were consensually agreed upon. Question Answer Comments Discussion of Advance Directives occurred with: Patient Does the patient have a Living Will? No Does the patient have Health Care Power of Merchandising Intern? No Care Teams Pipe Buffer Relationship Specialty Start Date End Date Zahira Meyer DO [address] [place] [address] PCP - General Family Medicine 01/06/18 documented as of this encounter
--- OUTSIDE RECORDS SUMMARY | 2023-12-09 06:40 | External Medical Summary | Summary of Care ---
Author Name Unknown Organization [facility] Address [address] [facility] [place] [address] Phone [phone] Care Team Providers Care Ramp Lead Name Role Phone Rohan Brandona Nohelia ELIZONDO Primary Care Provider [phone] Reason for Visit * Reason Onset Date Comments Pre Op Discussion 08/14/2023 PAT call Encounter Details Date Type Department Care Team (Late st Contact Info) Description 08/14/2023 Telephone OR [facility], Operating Room [facility] [address] [place] [phone] Wyatt Franklin MD [address] [place] [address] Pre Op Discussion (PAT call) Allergies Active Allergy Reactions Criticality Noted Date Comments No Known Drug Allergy 10/29/2004 documented as of this encounter (statuses as of 08/14/2023) Medications Medication Sig Dispensed Refills Start Date End Date Status Cholecalciferol (VITAMIN D) 2000 UNITS Capsule Take 2,000 Units by mouth at bedtime. 0 Active Aspirin 81 MG Tablet Take 1 Tablet by mouth in the morning. 0 Active Fiber, [place] Dextrin, POWD Take by mouth. 0 Active [...] as of this encounter (statuses as of 08/14/2023) Active Problems Problem Noted Date Diagnosed Date [...] as of this encounter (statuses as of 08/14/2023) Resolved Problems Problem Noted Date Diagnosed Date [...] as of this encounter (statuses as of 08/14/2023) Immunizations Name Administration Dates Next Due COVID-19 [...] or making decisions? (5 years old or older No 12/06/2019 documented as of this encounter Plan of Treatment Upcoming Encounters Date Type Department Care Team (Latest Contact Info) Description 08/19/2023 9:00 AM EST Hospital Encounter ENDO [facility], Endoscopy Room [facility] [address] [place] [id number] Wyatt Franklin MD [address] [place] [address] 08/19/2023 9:00 AM EST - 08/19/2023 9:30 AM EST Surgery ENDO [facility], Endoscopy Room [facility] [address] [place] [phone] Wyatt Franklin MD [address] [place] [address] COLONOSCOPY FLEXIBLE PROXIMAL DIAGNOSTIC 11/10/2023 9:30 AM EST Office Visit Gastroenterology, [facility] [address] [place] [address] Mary Ann Miranda CRNP [address] [place] [address] 11/11/2023 8:00 AM EST Office Visit [facility] [address] [place] [address] Kamryn Brandon DO [address] [place] [address] Scheduled Procedures Name Priority Associated Diagnoses Date/Ti me COLONOSCOPY FLEXIBLE PROXIMAL DIAGNOSTIC Recall History of colon polyps 08/19/2023 9:00 AM EST Health Maintenance Due Date Last Done Comments HIV Screening 1975 COLONOSCOPY-EVERY 3 YRS AGES 18-100 07/18/2023 07/18/2020, 07/18/2020, 07/22/2017, Additional history exists Depression Screening 11/05/2023 11/05/2022 Diabetes Screening 08/08/2026 08/08/2023, 0 04/17/2022, 02/14/2021, Additional history exists Lipid Panel 08/08/2028 08/08/2023, [...] this encounter Medical Devices Implanted Type Area Photoengraving Photographer Device Identifier Shelf Expiration Date Model / Serial / Lot Triathlon Tibial Bearing Insert -Cr Implanted:Qty: 1 on 12/06/2019 by Manny Lake DO at OR [facility] Left: Knee TABATHA : ORTHOPAEDICS 04/11/2024 [...] the patient have Health Care Power of Microbiology Lab Technician? No Care Teams Ramp Lead Relationship Specialty Start Date End Date Kamryn Brandon DO [address] [place] [address] PCP - General Family Medicine 01/06/18 documented as of this encounter
--- OUTSIDE RECORDS SUMMARY | 2023-12-09 06:41 | External Medical Summary ---
Author Name Unknown Address Unknown Organization [id number]:[facility] [address] - [address] [place] [address] Laboratory Report Ordering Provider Test Date Status MITCH RODRIGES 08/08/2023 11:39:59 Final Observation Date Value Abnormality Reference (Units ) Status BUN 08/08/2023 11:39:59 10 6-20 (mg/dL) Final Creatinine 08/08/2023 11:39:59 1.0 0.6-1.2 (mg/dL) Final Glomerular filtration rate/1.73 sq M.predicted [Volume Rate/Area] in Serum, Plasma or Blood by Creatinine-based formula (CKD-EPI) 08/08/2023 11:39:59 80 >=60 (mL/min) Final eGFR is calculated based on the CKD-EPI 2020 equation SODIUM 08/08/2023 11:39:59 140 135-146 (m mol/L) Final Potassium 08/08/2023 11:39:59 4.4 3.5-5.1 (m mol/L) Final Cl 08/08/2023 11:39:59 103 98-107 (mm ol/L) Final CO2 08/08/2023 11:39:59 26 22-32 (mmo l/L) Final Anion gap 08/08/2023 11:39:59 11 7-15 (mmol /L) Final Glucose 08/08/2023 11:39:59 95 70-120 (mg /dL) Final Albumin 08/08/2023 11:39:59 4.5 3.8-5.0 (g /dL) Final AST (Aspartate aminotransferase) 08/08/2023 11:39:59 22 10-50 (U/L) Final Alk Phos 08/08/2023 11:39:59 68 35-130 (U/ L) Final Bilirubin, Total 08/08/2023 11:39:59 1.2 <=1 .2 (mg/dL) Final Calcium 08/08/2023 11:39:59 9.3 8.4-10.2 ( mg/dL) Final Protein 08/08/2023 11:39:59 6.9 6.0-8.3 (g /dL) Final ALT (Alanine aminotransferase) 08/08/2023 11:39:59 47 10-50 (U/L) Final Performing Location LABORATORY [facility] [address] - [address] [place] [address]
--- OUTSIDE RECORDS SUMMARY | 2023-12-09 06:41 | External Medical Summary | Summary of Care ---
Author Name Unknown Organization [facility] Address [address] [facility] [address] Phone [phone] Care Team Providers Care Mechanical Intern Name Role Phone Roma Kamryn Nohelia ELIZONDO Primary Care Provider [phone] Encounter Details Date Type Department Care Team Description 07/09/2023 Abstract Family Practice [facility] [address] [facility] [place] [address] Kasia Quiñonez RN Allergies Active Allergy Reactions Severity Noted Date Comments No Known Drug Allergy 10/29/2004 documented as of this encounter (statuses as of 07/09/2023) Medications Medication Sig Dispensed Refills Start Date End Date Status POTASSIUM 99 MG PO TABS one pill each day 0 Active Cholecalciferol (VITAMIN D) 2000 UNITS Capsule Take 2,000 Units by mouth daily. 0 Active Aspirin 81 MG Tablet Take 1 Tablet by mouth in the morning. 0 Active Fiber, [place] Dextrin, POWD Take by mouth. 0 Active Polyethylene Glycol 3350 17 GM/SCOOP Oral Powder Take 17 g by mouth in the morning. 0 Active Omeprazole 20 MG Oral Capsule Delayed Release (PriLOSEC)Indications :Hiatal hernia Take 1 Capsule by mouth in the morning and 1 Capsule before bedtime. 60 Capsule 5 02/03/2023 Active Atorvastatin Calcium 40 MG Oral Tablet (Lipitor)Indications: Mixed dyslipidemia Take 1 Tablet by mouth in the morning. 90 Tablet 0 05/05/2023 Active Gabapentin 400 MG Oral Capsule (Neurontin)Indication s:RLS (restless legs syndrome) Take 1 Capsule by mouth at bedtime. 30 Capsule 5 06/24/2023 Active documented as of this encounter (statuses as of 07/09/2023) Active Problems Problem Noted Date Obesity, Class I, BMI 30.0-34.9 (see act ual BMI) 04/16/2022 Hepatic steatosis 06/26/2021 RLS (restless legs syndrome) 03/14/2021 Gastroesophageal reflux disease with eso phagitis 04/26/2019 Diverticulosis, sigmoid 04/26/2019 Chronic constipation 04/26/2019 History of pulmonary embolism 01/07/2017 Overview: Anticipate stopping coumadin in jul 2017. 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 Dyslipidemia 03/12/2001 documented as of this encounter (statuses as of 07/09/2023) Resolved Problems Problem Noted Date Resolved Date Elevated LFTs 04/25/2021 04/16/2022 Hyperlipidemia 03/14/2021 04/16/2022 Hordeolum externum of left lower eyelid 03/14/20 21 04/16/2022 Elevated ferritin 03/14/2021 04/16/2022 Eyelid abnormality 03/14/2021 04/16/2022 S/P TKR (total knee replacement), left 0 04/16/2022 Acute deep vein thrombosis ( DVT) of distal vein of left lower extremity 12/23/2017 01/21/2019 Snoring 07/25/2015 04/26/2019 Knee pain, left 01/28/2014 04/26/2019 General medical exam 11/15/2011 05/13/2013 TUBULAR ADENOMA POLYPS OF COLON 12/26/2008 06/19/2017 ADVANCE DIRECTIVE INFORMATION 2006 Overview: Info given to pt FAMILY GUNJAN GIANG.NEOPLASM PROSTATE - Dad 05/06/20 02 04/26/2019 LUMBAGO 03/12/2001 07/25/2015 Irritable bowel syndrome 019 documented as of this encounter (statuses as of 07/09/2023) Immunizations Name Administration Dates Next Due COVID-19 mRNA, LNP-s, No Pre serve, 2-Dose Series (Tailored) 03/01/2022,08/03/2021,12/21/2020,2020 COVID-19, MRNA-LNP, PF, 30 M CG/0.3 mL, 12 yrs and above, IM (Pfizer) 07/07/2023 Rsv Vac., Recomb, Adjuvant, Pf,0.5 Ml [...] = 0.6 oz pur e alcohol) occasionally Food Insecurity Answer Date Recorded Within the past 12 months, y ou worried that your food would run out before you got money to buy more. Never true 04/25/2021 Within the past 12 months, t he food you bought just didn't last and you didn't have money to get more. Never true 04/25/2021 Sex Assigned at Date Recorded Not on file Job Start Date Occupation [...] Plan of Treatment Upcoming Encounters Date Type Specialty Care Team Description 11/11/2023 Office Visit Family Medicine Kamryn Brandon, DO [address] [place] [address] Scheduled Procedures Name Priority Associated Diagnoses Date/Ti me COLONOSCOPY FLEXIBLE PROXIMAL DIAGNOSTIC Recall History of colon polyps Health Maintenance Due Date Last Done Comments HIV Screening 1975 COLONOSCOPY-EVERY 3 YRS AGES 18-100 07/18/2023 07/18/2020, 07/18/2020, 07/22/2017, Additional history exists Depression Screening 11/05/2023 11/05/2022 Diabetes Screening 04/17/2025 04/17/2022, 0 02/14/2021, 12/07/2019, Additional history exists Lipid Panel 04/17/2027 04/17/2022, 02/03, 01/21/2019, Additional history exists DTaP,Tdap,and Td Vaccines (3 [...] this encounter Medical Devices Implanted Type Area Blade Changer Device Identifier Shelf Expiration Date Model / Serial / Lot Triathlon Tibial Bearing Insert -Cr Implanted:Qty: 1 on 12/06/2019 by Manny Lake DO at OR [facility] Left: Knee TABATHA : ORTHOPAEDICS [...] the patient have Health Care Power of Licensing Engineer? No Care Teams Mechanical Intern Relationship Specialty Start Date End Date Kamryn Brandon DO [address] [place] [address] PCP - General Family Medicine 01/06/18 documented as of this encounter
--- OUTSIDE RECORDS SUMMARY | 2023-12-09 06:41 | External Medical Summary ---
Author Name Unknown Address Unknown Organization [id number]:LABORATORY [facility] - [address] [place] [address] Laboratory Report Ordering Provider Test Date Status MITCH RODRIGES 08/08/2023 11:39:59 Final Observation Date Value Abnormality Reference (Units ) Status Vitamin B12 08/08/2023 11:39:59 [phone] (pg/mL) Final Performing Location [facility] - [address] [place] [address]
--- OUTSIDE RECORDS SUMMARY | 2023-12-09 06:41 | External Medical Summary | Summary of Care ---
Author Name Unknown Organization [facility] Address [address] [facility] [place] [address] Phone [phone] Care Team Providers Care Primary Care Coordinator Name Role Phone Zahira Meyer DO Primary Care Provider [phone] Reason for Visit * Reason Onset Date Comments Medication Refill 06/23/2023 Encounter Details Date Type Department Care Team Description 06/23/2023 Refill Family Practice [facility] [address] [place] [address] Zahira Meyer DO [address] [place] [address] RLS (restless legs syndrome) Allergies Active Allergy Reactions Severity Noted Date Comments No Known Drug Allergy 10/29/2004 documented as of this encounter (statuses as of 06/24/2023) Medications Medication Sig Dispensed Refills Start Date End Date Status POTASSIUM 99 MG PO TABS one pill each day 0 Active Cholecalciferol (VITAMIN D) 2000 UNITS Capsule Take 2,000 Units by mouth daily. 0 Active Aspirin 81 MG Tablet Take 1 Tablet by mouth in the morning. 0 Active Fiber, [place] Dextrin, POWD Take by mouth. 0 Active [...] 05/05/2023 Active Gabapentin 400 MG Oral Capsule (Neurontin)Indicat ions:RLS (restless legs syndrome) Take 1 Capsule by mouth at bedtime. 30 Capsule 5 06/24/2023 Active Gabapentin 400 MG Oral Capsule (Neurontin)Indicat ions:RLS (restless legs syndrome) Take 1 Capsule by mouth at bedtime. 30 Capsule 1 04/23/2023 06/23/2023 Discontinued (Refill) documented as of this encounter (statuses as of 06/24/2023) Active Problems Problem Noted Date Obesity, Class [...] as of this encounter (statuses as of 06/24/2023) Resolved Problems Problem Noted Date Resolved Date [...] as of this encounter (statuses as of 06/24/2023) Immunizations Name Administration Dates Next Due COVID-19 mRNA, LNP-s, No Pre serve, 2-Dose Series (Pfizer) 03/01/2022,08/03/2021,12/21/2020,2020 Seasonal Influenza, PF, 6 mo ns & Above, IM , (Flulaval) 06/24/2022,06/14/2021,07/15/2020,2018 Seasonal Influenza, Quadriva lent, No Preserve, [...] encounter Miscellaneous Notes * Telephone Encounter - Zahira Meyer DO - 06/24/2023 8:06 AM EDTSigned Prescriptions: Disp Refills Gabapentin 400 MG Oral Capsule (Neurontin) 30 Cap*5 Sig: Take 1 Capsule by mouth at bedtime. Authorizing Provider: ZAHIRA MEYER * Telephone Encounter - Melisa Domingo LPN - 06/24/2023 7:46 AM EDTPending Prescriptions: Disp Refills Gabapentin 400 MG Oral Capsule (Neurontin) 30 Cap*5 Sig: Take 1 Capsule by mouth at bedtime. * Telephone Encounter - Melisa Domingo LPN - 06/24/2023 7:45 AM EDT Did you pend patient's preferred pharmacy and medication before forwarding?yes Pharmacy: [facility] [place] Pending Prescriptions: Disp Refills Gabapentin 400 MG Oral Capsule (Neurontin)30 Cap*1 Sig: Take 1 Capsule by mouth at bedtime. Last Visit: 05/23/2023 (in office), Visit date not found (telemedicine) Next Visit: 11/11/2023 If no future appointments scheduled, and last appointment is greater than a year ago, please schedule patient for a follow-up appointment Last date the medication was ordered: 04/23/23 Is this request for a controlled substance?No Urine Drug Screen:No results found for this or any previous visit. Patient Phone Numbers Labs: Lab Results Component Value Date/Time CREAT 1.1 04/17/2022 12:50 PM CREAT 0.9 12/07/2019 05:27 AM POTASSIUM 4.5 04/17/2022 12:50 PM POTASSIUM 4.2 12/07/2019 05:27 AM TSH 1.90 05/21/2019 12:00 AM TSH 1.80 05/13/2013 09:41 AM LDLCALC 73 04/17/2022 12:50 PM LDLCALC 83 01/21/2019 12:00 AM LDLCALC 115 01/07/2018 04:01 PM LDLDIRECT 88 02/14/2021 08:34 AM LDLDIRECT NOT APPLICABLE 01/07/2018 04:01 PM ALT 44 04/17/2022 12:50 PM ALT 51 (H) 11/17/2019 12:34 PM HGBA1C 5.6 11/17/2019 12:34 PM * Telephone Encounter - Chad Armenta - 06/23/2023 4:11 PM EDTPending Prescriptions: Disp Refills Gabapentin 400 MG Oral Capsule (Neurontin) 30 Cap*1 Sig: Take 1 Capsule by mouth at bedtime. documented in this encounter Plan of Treatment Upcoming Encounters Date Type Specialty Care Team Description 11/11/2023 Office Visit Family Medicine Zahira Meyer, DO [address] [place] [address] Scheduled Procedures Name Priority Associated Diagnoses Date/Ti me COLONOSCOPY FLEXIBLE PROXIMAL DIAGNOSTIC Recall History of colon polyps Health Maintenance Due Date Last Done Comments HIV Screening 1975 COVID-19 Vaccine (5 - Pfizer series) 04/26/2022 03/01/2022, 08/03/2021, 12/21/2020, Additional history exists Influenza Vaccine (FLU shot) (#1) 2023 06/24/2022, 06/14/2021, 07/15/2020, Additional history exists COLONOSCOPY-EVERY 3 YRS AGES 18-100 07/18/2023 07/18/2020, 07/18/2020, 07/22/2017, Additional history exists Depression Screening 11/05/2023 11/05/2022 Diabetes Screening 04/17/2025 04/17/2022, 0 02/14/2021, 12/07/2019, Additional history exists Lipid Panel 04/17/2027 04/17/2022, 02/03, 01/21/2019, Additional history exists DTaP,Tdap,and Td Vaccines (3 - Td or Tdap) 11/05/2032 11/05/2022, 06/12/2012, 03/15/2004, Additional history exists Hepatitis B Completed 12/10/1997, 07/06, 05/27/1997 Zoster Vaccines Completed 01/17/2020, 11/16/2019 GARDASIL-HPV IMMUNIZATION SERIES Aged Out No longer [...] this encounter Medical Devices Implanted Type Area Song Writer Device Identifier Shelf Expiration Date Model / Serial / Lot Triathlon Tibial Bearing Insert -Cr Implanted:Qty: 1 on 12/06/2019 by Manny Lake DO at OR [facility] Left: Knee TABATHA : ORTHOPAEDICS 04/11/2024 [...] the patient have Health Care Power of Bag Making Machine Operator? No Care Teams Primary Care Coordinator Relationship Specialty Start Date End Date Zahira Meyer DO [address] [place] [address] PCP - General Family Medicine 01/06/18 documented as of this encounter
--- OUTSIDE RECORDS SUMMARY | 2023-12-09 06:41 | External Medical Summary | Summary of Care ---
Author Name Unknown Organization [facility] Address [address] [facility] [address] Phone [phone] Care Team Providers Care Cap Coverer Name Role Phone Kamryn Brandon DO Primary Care Provider [phone] Reason for Visit * Reason Onset Date Comments Returning Call 03/18/2023 Encounter Details Date Type Department Care Team Description 03/18/2023 Telephone Family Practice [facility] [address] [place] [address] Kamryn Brandon DO [address] [facility] [place] [address] Returning Call Allergies Active Allergy Reactions Severity Noted Date Comments No Known Drug Allergy 10/29/2004 documented as of this encounter (statuses as of 06/12/2023) Medications Medication Sig Dispensed Refills Start Date End Date Status POTASSIUM 99 MG PO TABS one pill each day 0 Active Cholecalciferol (VITAMIN D) 2000 UNITS Capsule Take 2,000 Units by mouth daily. 0 Active Aspirin 81 MG Tablet Take 1 Tablet by mouth in the morning. 0 Active Fiber, [place] Dextrin, POWD Take by mouth. 0 Active Polyethylene Glycol 3350 17 GM/SCOOP Oral Powder Take 17 g by mouth in the morning. 0 Active Omeprazole 20 MG Oral Capsule Delayed Release (PriLOSEC)Indication s:Hiatal hernia Take 1 Capsule by mouth in the morning and 1 Capsule before bedtime. 60 Capsule 5 02/03/2023 Active documented as of this encounter (statuses as of 06/12/2023) Active Problems Problem Noted Date Obesity, Class [...] as of this encounter (statuses as of 06/12/2023) Resolved Problems Problem Noted Date Resolved Date [...] as of this encounter (statuses as of 06/12/2023) Immunizations Name Administration Dates Next Due COVID-19 mRNA, LNP-s, No Pre serve, 2-Dose Series ([employer]) 03/01/2022,08/03/2021,12/21/2020,2020 Seasonal Influenza, PF, 6 mo ns [...] encounter Miscellaneous Notes * Telephone Encounter - CARMEN Cole - 03/18/2023 11:34 AM EDT Patient's returning missed call. No outstanding messages were found. documented in this encounter Plan of Treatment Upcoming Encounters Date Type Specialty Care Team Description 11/11/2023 Office Visit Family Medicine Kamryn Brandon, DO [address] [place] [address] Scheduled Procedures Name Priority Associated Diagnoses Date/Ti [...] 07/18/2020, 07/18/2020, 07/22/2017, Additional history exists Depression Screening, Annual for Pts 12 and Over 11/05/2023 11/05/2022 Diabetes Screening 04/17/2025 04/17/2022, 0 [...] this encounter Medical Devices Implanted Type Area Customer Service Security Officer Device Identifier Shelf Expiration Date Model / Serial / Lot Triathlon Tibial Bearing Insert -Cr Implanted:Qty: 1 on 12/06/2019 by Manny Lake DO at OR [facility] Left: Knee TABATHA : ORTHOPAEDICS 04/11/2024 [...] the patient have Health Care Power of Bottom Buffer? No Care Teams Cap Coverer Relationship Specialty Start Date End Date Kamryn Brandon DO [address] [place] [address] PCP - General Family Medicine 01/06/18 documented as of this encounter
--- OUTSIDE RECORDS SUMMARY | 2023-12-09 06:41 | External Medical Summary ---
Author Name Unknown Address Unknown Organization [id number]:LABORATORY [facility] [place] - [address] [facility] [address] Laboratory Report Ordering Provider Test Date Status ZAHIRAEMMANUELLER 08/08/2023 11:39:59 Final Observation Date Value Abnormality Reference (Units ) Status Triglyceride 08/08/2023 11:39:59 105 <=174 ( mg/dL) Final Triglyceride Reference Range s (mg/dL):
<150 Acceptable
150-174 Borderline high
175-499 High
>=500 Very high Cholesterol 08/08/2023 11:39:59 144 <200 (mg /dL) Final Total Cholesterol Reference Ranges (mg/dL):
<200 Desirable
200-239 Borderline high
>=240 High HDL 08/08/2023 11:39:59 44 >39 (mg/dL ) Final HDL Cholesterol Reference Ra nges (mg/dL):
>=60 High (Desirable)
<50 Low (Undesirable) For Females
<40 Low (Undesirable) For Males NON-HDL CHOLESTEROL 08/08/2023 11:39:59 100 <=159 (mg/dL) Final Non-HDL Cholesterol Referenc e Range (mg/dL):
<100 Target level for high risk ASCVD patient
<130 Optimal for general population
130-159 Near optimal for general population
160-189 Borderline High
190-219 High
>=220 Very High LDL, (calculated) 08/08/2023 11:39:59 79 <= 129 (mg/dL) Final LDL Cholesterol Reference Ra nges (mg/dL):
<70 Target level for high risk ASCVD patient
<100 Optimal for general population
100-129 Near optimal for general population
130-159 Borderline high
160-189 High
>=190 Very high Performing Location LABORATORY [facility] [place] - [address] [facility] [address]
--- OUTSIDE RECORDS SUMMARY | 2023-12-09 06:41 | External Medical Summary ---
Author Name Unknown Address Unknown Organization [id number]:LABORATORY [facility] - [address] [place] [address] Laboratory Report Ordering Provider Test Date Status MITCH RODRIGES 08/08/2023 11:39:59 Final Observation Date Value Abnormality Reference (Units ) Status PSA 08/08/2023 11:39:59 2.03 <4.10 (ng/ mL) Final Performing Location [facility] - [address] [place] [address]
--- OUTSIDE RECORDS SUMMARY | 2023-12-09 06:41 | External Medical Summary ---
Author Name Unknown Address Unknown Organization [id number]:[facility] [place] [address] [place] [address] Laboratory Report Ordering Provider Test Date Status MITCH RODRIGES 08/08/2023 11:39:59 Final Observation Date Value Abnormality Reference (Units ) Status TSH 08/08/2023 11:39:59 3.37 0.27-4.20 (uIU/mL) Final Performing Location [facility]ATORY [facility] [address] [facility] [address]
--- OUTSIDE RECORDS SUMMARY | 2023-12-09 06:41 | External Medical Summary | Summary of Care ---
Author Name Unknown Organization [facility] Address [address] [facility] [place] [address] Phone [phone] Care Team Providers Care Cloth Mercerizer Operator Name Role Phone Zahira Meyer DO Primary Care Provider [phone] Reason for Visit * Reason Onset Date Comments Medication Refill 08/04/2023 Encounter Details Date Type Department Care Team (Late st Contact Info) Description 08/04/2023 Refill Family Practice [facility] [address] [place] [address] Zahira Meyer DO [address] [place] [address] Hiatal hernia; Mixed dyslipidemia Allergies Active Allergy Reactions Criticality Noted Date Comments No Known Drug Allergy 10/29/2004 documented as of this encounter (statuses as of 08/05/2023) Medications Medication Sig Dispensed Refills Start Date End Date Status POTASSIUM 99 MG PO TABS one pill each day 0 Active Cholecalciferol (VITAMIN D) 2000 UNITS Capsule Take 2,000 Units by mouth daily. 0 Active Aspirin 81 MG Tablet Take 1 Tablet by mouth in the morning. 0 Active Fiber, [place] Dextrin, POWD Take by mouth. 0 Active [...] the morning. 90 Tablet 0 08/05/2023 Active Omeprazole 20 MG Oral Capsule Delayed Release (PriLOSEC)Indicati ons:Hiatal hernia Take 1 Capsule by mouth in the morning and 1 Capsule before bedtime. 60 Capsule 5 02/03/2023 08/04/2023 Discontinued (Refill) Atorvastatin Calcium 40 MG Oral Tablet (Lipitor)Indicatio ns:Mixed dyslipidemia Take 1 Tablet by mouth in the morning. 90 Tablet 0 05/05/2023 08/04/2023 Discontinued (Refill) documented as of this encounter (statuses as of 08/05/2023) Active Problems Problem Noted Date Diagnosed Date [...] as of this encounter (statuses as of 08/05/2023) Resolved Problems Problem Noted Date Diagnosed Date [...] as of this encounter (statuses as of 08/05/2023) Immunizations Name Administration Dates Next Due COVID-19 mRNA, LNP-s, No Pre serve, 2-Dose Series ([employer]) 03/01/2022,08/03/2021,12/21/2020,2020 COVID-19, MRNA-LNP, 23-24, P F, 30 [...] Recorded PHQ Adult Total Score 0 11/05/2022 Sex and Gender Information Value Date Recorded [...] encounter Miscellaneous Notes * Telephone Encounter - Beatrice Dangelo manager government - 08/05/2023 12:51 PM EDT Received message from [facility] regarding patient needing labs. Placed call to patient to advise. Pt was agreeable to have labs drawn but would prefer to walk-in at their convenience. Thank you, Beatrice Dangelo Supervisor Network Control Operators [facility] 08/05/2023, 12:51 PM * Telephone Encounter - Cherie Urena [facility] - 08/05/2023 7:54 AM EDTSigned Prescriptions: Disp Refills Omeprazole 20 MG Oral Capsule Delayed Rele*60 Cap*5 Sig: Take 1 Capsule by mouth in the morning and 1 Capsule before bedtime. Authorizing Provider: ZAHIRA MEYER Ordering User: CHERIE URENA Atorvastatin Calcium 40 MG Oral Tablet (Li*90 Tab*0 Sig: Take 1 Tablet by mouth in the morning. Authorizing Provider: ZAHIRA MEYER Ordering User: CHERIE URENA * Telephone Encounter - Cehrie Urena RPh - 08/05/2023 7:53 AM EDT Provided 90 days supply with 0 refill(s). Per refill protocol patient should have routine on file within past year. Reviewed AMP report, Care Gaps/Health Maintenance, medications list, and for any routine labs typically ordered for this patient. Lab orders placed. Please contact patient to advise of labs ordered for blood draw. Recommend patient to fast if able for labs. Patient may still have water and regular medications. Advise to obtain labs before requesting the next refill. Thank you, Cherie Urena, PharmD. Clinical Pharmacist [facility] ([facility]) (formerly Telepharmacy) 08/05/2023, 7:53 AM documented in this encounter Plan of Treatment Upcoming Encounters Date Type Department Care Team (Late st Contact Info) Description 11/10/2023 9:30 AM EST Office Visit Gastroenterology, [facility] [address] [place] [address] Mary Ann Miranda CRNP [address] [place] [address] 11/11/2023 8:00 AM EST Office Visit Family Practice [facility] [address] [place] [address] Zahira Meyer, DO [address] [place] [address] Scheduled Procedures Name Priority Associated Diagnoses Date/Ti [...] this encounter Medical Devices Implanted Type Area Restaurant Hourly Manager Device Identifier Shelf Expiration Date Model / Serial / Lot Triathlon Tibial Bearing Insert -Cr Implanted:Qty: 1 on 12/06/2019 by Manny Lake, at OR [facility] Left: Knee TABATHA : ORTHOPAEDICS 04/11/2024 [id number]-610 [id number] / / [id number] documented as of this encounter Visit Diagnoses Diagnosis Hiatal hernia Diaphragmatic hernia without mention of obstruction or gangrene Mixed dyslipidemia Mixed hyperlipidemia documented in this [...] the patient have Health Care Power of Loom Operator? No Care Teams Cloth Mercerizer Operator Relationship Specialty Start Date End Date Zahira Meyer DO [address] [place] [address] PCP - General Family Medicine 01/06/18 documented as of this encounter
--- OUTSIDE RECORDS SUMMARY | 2023-12-09 06:41 | External Medical Summary | Summary of Care ---
Author Name Unknown Organization [facility] Address [address] [facility] [address] Phone [phone] Care Team Providers Care Television Program Director Name Role Phone Kamryn Bradnon DO Primary Care Provider [phone] Reason for Visit * Reason Comments Outpatient Testing Encounter Details Date Type Department Care Team (Late st Contact Info) Description 08/08/2023 11:50 AM EDT Laboratory Laboratory, Health [facility] [address] [place] [address] [facility] [address] [place] [address] Tremor; Dyslipidemia; Screening for prostate cancer Allergies Active Allergy Reactions Criticality Noted Date Comments No Known Drug Allergy 10/29/2004 documented as of this encounter (statuses as of 08/08/2023) Medications Medication Sig Dispensed Refills Start Date End Date Status POTASSIUM 99 MG PO TABS one pill each day 0 Active Cholecalciferol (VITAMIN D) 2000 UNITS Capsule Take 2,000 Units by mouth daily. 0 Active Aspirin 81 MG Tablet Take 1 Tablet by mouth in the morning. 0 Active Fiber, [place] Dextrin, POWD Take by mouth. 0 Active [...] the morning. 90 Tablet 0 08/05/2023 Active documented as of this encounter (statuses as of 08/08/2023) Active Problems Problem Noted Date Diagnosed Date [...] as of this encounter (statuses as of 08/08/2023) Resolved Problems Problem Noted Date Diagnosed Date [...] as of this encounter (statuses as of 08/08/2023) Immunizations Name Administration Dates Next Due COVID-19 mRNA, LNP-s, No Pre serve, 2-Dose Series ([employer]) 03/01/2022,08/03/2021,12/21/2020,2020 COVID-19, MRNA-LNP, 23-24, P F, 30 [...] 11/10/2023 9:30 AM EST Office Visit Gastroenterology, Health system [address] [address] Mary Ann Miranda CRNP [address] [place] [address] 11/11/2023 8:00 AM EST Office Visit Family Practice [facility] [address] [place] [address] Kamryn Brandon DO [address] [place] [address] Pending Results Name Type Priority Associated Diagnoses Date /Time VITAMIN B12 Lab Routine Tremor 08/08/2023 11:39 AM EDT TSH WITH FREE T4 IF INDICATED Lab Routine Tremor 08/08/2023 11:39 AM EDT COMPREHENSIVE METABOLIC PANEL Lab Routine Dyslipidemia 08/08/2023 11:39 AM EDT PSA Lab Routine Screening for prostate cancer 08/08/2023 11:39 AM EDT LIPID PANEL WITH DIRECT LDL IF TG IS HIGH Lab Routine Dyslipidemia 08/08/2023 11:39 AM EDT Scheduled Procedures Name Priority Associated Diagnoses Date/Ti [...] this encounter Medical Devices Implanted Type Area Virtual Classroom Manager Device Identifier Shelf Expiration Date Model / Serial / Lot Triathlon Tibial Bearing Insert -Cr Implanted:Qty: 1 on 12/06/2019 by Manny Lake, at OR [facility] Left: Knee TABATHA : ORTHOPAEDICS 04/11/2024 [id number]-610 [id number] / / [id number] documented as of this encounter Visit Diagnoses Diagnosis Tremor Abnormal involuntary movements Dyslipidemia Other and unspecified hyperlipidemia Screening for prostate cancer Special screening for malignant neoplasm of prostate documented in this encounter Advance Directives Latest [...] the patient have Health Care Power of Full Service Supervisor? No Care Teams Television Program Director Relationship Specialty Start Date End Date Kamryn Brandon DO [address] [place] [address] PCP - General Family Medicine 01/06/18 documented as of this encounter
--- OUTSIDE RECORDS SUMMARY | 2023-12-09 06:41 | External Medical Summary | Summary of Care ---
Author Name Unknown Organization [facility] Address [address] [place] [facility] [place] [address] Phone [phone] Care Team Providers Care Director Of Business Continuity Name Role Phone Kamryn Brandon DO Primary Care Provider [phone] Reason for Referral * Ancillary Services (Within 30 days (routine)) - Pending Review Specialty Diagnoses / Procedures Referred By Trav ayoub Referred To Contact Gastroenterology Diagnoses Hx of colonic polyps Kamryn Brandon DO [address] [place] [address] Wyatt Franklin MD [address] [place] [address] Referral ID Status Reason Start Date Expiration Date Visits Requested Visits Authorized [id number] Pending Review Ancillary Services Required 08/11/[phone] Question Answer Referral Priority Within 30 days (routine) Where should this appointment be scheduled? [facility] Comments ALERT: Do not order for pediatric patients (18 years or younger). Cancel off screen and order PEDS GASTROENTEROLOGY CONSULT (Type: 1 visit only-Evaluate and Treat) The following Pt. Instructions are available: - Gastro Colonoscopy Prep Instructions [34691] - Gastro Colonoscopy Prep Instructions (Swedish Version) [[id number]] Go to the Pt. Instructions section within the Visit Navigator to access. Colonoscopy ASGE Guidelines: Postadenoma resection: 3-10 adenomas or adenoma with villous features, greater than or equal 1 cm, or with high-grade dysplasia (3 yr intervals) ADDITIONAL INFORMATION 1. Is the patient on Coumadin? No 2. Is the patient on Pradaxa? No Reason for Visit * Reason Onset Date Comments Order Request 08/11/2023 Encounter Details Date Type Department Care Team (Late st Contact Info) Description 08/11/2023 Telephone Gastroenterology, [facility] [address] [place] [address] Wyatt Franklin MD [address] [place] [address] Order Request Allergies Active Allergy Reactions Criticality Noted Date Comments No Known Drug Allergy 10/29/2004 documented as of this encounter (statuses as of 08/11/2023) Medications Medication Sig Dispensed Refills Start Date End Date Status POTASSIUM 99 MG PO TABS one pill each day 0 Active Cholecalciferol (VITAMIN D) 2000 UNITS Capsule Take 2,000 Units by mouth daily. 0 Active Aspirin 81 MG Tablet Take 1 Tablet by mouth in the morning. 0 Active Fiber, [place] Dextrin, POWD Take by mouth. 0 Active [...] as of this encounter (statuses as of 08/11/2023) Active Problems Problem Noted Date Diagnosed Date [...] as of this encounter (statuses as of 08/11/2023) Resolved Problems Problem Noted Date Diagnosed Date [...] Overview: Info given to pt FAMILY GUNJAN RAHAT.NEOPLASM PROSTATE - Dad 05/06/2002 04/26/2019 LUMBAGO 03/12/2001 07/25/2015 Irritable bowel syndrome documented as of this encounter (statuses as of 08/11/2023) Immunizations Name Administration Dates Next Due COVID-19 mRNA, LNP-s, No Pre serve, 2-Dose Series ([employer]) 03/01/2022,08/03/2021,12/21/2020,2020 COVID-19, MRNA-LNP, 23-24, P F, 30 [...] encounter Miscellaneous Notes * Telephone Encounter - Yanely Garcia, RN - 08/11/2023 12:55 PM EST Provider to address: NA Reason for Call: Order Request Contact: Telephone Call Contact Type: Orders Outcome: colonoscopy order placed Face to face time spent with Patient (minutes): 0 Total Time including non face to face (minutes): 10 * Telephone Encounter - Tammy Gomez - 08/11/2023 12:11 PM EST Patient is scheduled for a Colonoscopy on 08/19/23 w/ Dr. Franklin Dx: History of colon polyps [Z86.010] Please place order in chart for upcoming procedure Thank you documented in this encounter Plan of Treatment Upcoming Encounters Date Type Department Care Team (Latest Contact Info) Description 08/19/2023 9:00 AM EST Hospital Encounter ENDO [facility], Endoscopy Room [facility] [address] [place] [phone] Wyatt Franklin MD [address] [place] [address] 08/19/2023 9:00 AM EST - 08/19/2023 9:30 AM EST Surgery ENDO [facility], Endoscopy Room [facility] [address] [place] [id number] Wyatt Franklin MD [address] [place] [address] COLONOSCOPY FLEXIBLE PROXIMAL DIAGNOSTIC 11/10/2023 9:30 AM EST Office Visit Gastroenterology, [facility] [address] [place] [address] Mary Ann Miranda CRNP [address] [place] [address] 11/11/2023 8:00 AM EST Office Visit Family Practice [facility] [address] [place] [address] Kamryn Brandon DO [address] [place] [address] Scheduled Procedures Name Priority Associated Diagnoses Date/Ti me COLONOSCOPY FLEXIBLE PROXIMAL DIAGNOSTIC Recall History of colon polyps 08/19/2023 9:00 AM EST Scheduled Referrals Name Type Priority Associated Diagnoses Orde r Schedule COLONOSCOPY, GI REFERRAL OP Referral Within 30 days (routine) Hx of colonic polyps Ordered: 08/11/2023 Health Maintenance Due Date Last Done Comments [...] this encounter Medical Devices Implanted Type Area Post Acute Care Nurse Device Identifier Shelf Expiration Date Model / Serial / Lot Triathlon Tibial Bearing Insert -Cr Implanted:Qty: 1 on 12/06/2019 by Manny Lake DO at OR [facility] Left: Knee TABATHA : ORTHOPAEDICS 04/11/2024 [id number]-610 [id number] / / [id number] documented as of this encounter Visit Diagnoses Diagnosis Hx of colonic polyps- Primary Personal history of colonic polyps History of colon polyps Personal history of colonic polyps documented in this encounter Advance Directives Latest [...] the patient have Health Care Power of Rn Chronic? No Care Teams Director Of Business Continuity Relationship Specialty Start Date End Date Kamryn Brandon DO [address] [place] [address] PCP - General Family Medicine 01/06/18 documented as of this encounter
[2023-12-09 07:53] LABS: ANTI-Xa, UFH(UnfractionatedHep 0.37 IU/ml (0.3-0.7)
--- NOTE | 2023-12-09 08:28 | Electrocardiogram Report ---
Test Reason : Blood Pressure : / mmHG Vent. Rate : 099 BPM Atrial Rate : 099 BPM P-R Int : 152 ms QRS Dur : 068 ms QT Int : 330 ms P-R-T Axes : 043 007 060 degrees QTc Int : 423 ms Normal sinus rhythm Poor R wave progression, consider anterior TX vs. lead placement vs. LVH Abnormal ECG When compared with ECG of 01-JAN-2017 00:02, No significant change was found Confirmed by Kulwant Aly ([id number]) on 12/09/2023 8:27:37 AM Referred By: REFERRED SELF Confirmed By:Kulwant Aly
[2023-12-09] MEDS: PANTOprazole 40 MG TAB PO SCH (08:40)
[2023-12-09 13:48] LABS: ANTI-Xa, UFH(UnfractionatedHep 0.53 IU/ml (0.3-0.7)
--- NOTE | 2023-12-09 16:50 | Communication Note ---
Date of Service: December 09, 2023 63-year-old male with significant past medical history of hepatic steatosis, hyperlipidemia, restless leg syndrome with history of DVT and PE about 6 to 7 ye ars ago following left knee pain and arthritis and she he finished a course of Coumadin for about 6 months. He has been complaining of pain in the left leg with swelling of the calf for the last 3 days with cough and minimal shortness of breath also has influenza A on testing. He was noted to have left lower leg DVT and also segmental pulmonary embolism without any heart strain. He has been started on intravenous heparin and was admitted to telemetry unit for continuation of care. Full progress note will be done tomorrow. Diagnosis-influenza A Pulmonary embolism with left leg acute DVT likely primary DR Nohelia Macedo
[2023-12-09 20:02] LABS: ANTI-Xa, UFH(UnfractionatedHep 0.61 IU/ml (0.3-0.7)
[2023-12-09] MEDS ORDERED: NON-FORMULARY MEDICATION (Potassium Gluconate 595 mg (99 mg) Tablet) PO SCH (21:00)
[2023-12-09] MEDS ORDERED: DEXTRIN PO SCH (21:00)
[2023-12-09] MEDS: ASPIRIN 81 MG ECTAB PO SCH (21:40)
[2023-12-09] MEDS: GABAPENTIN 400 MG CAP PO SCH (21:41)
[2023-12-09] MEDS: CHOLECALCIFEROL 25 MCG (1000 UNITS) TAB PO SCH (21:41)
[2023-12-09] MEDS: POLYETHYLENE (MIRALAX) 17 GM PACK PO SCH (21:41)
[2023-12-09] MEDS: ATORVASTATIN 40 MG TAB PO SCH (21:41)
[2023-12-10 05:00] LABS: Basophils # (auto) 0.02 K/uL (0.00-0.20); Basophils % (auto) 0.7 %; Eosinophils # (auto) 0.17 K/uL (0.00-0.50); Eosinophils % (auto) 5.6 %; Hematocrit (blood only) 43.7 % (42.0-52.0); Hemoglobin 14.9 g/dl (14.0-18.0); Immature Granulocytes # (auto) 0.01 K/uL (0.01-0.20); Immature Granulocytes % (auto) 0.3 %; Lymphocytes # (auto) 0.89 K/uL (1.20-3.40); Lymphocytes % (auto) 29.2 %; Mean Corpuscular Hemoglobin 29.8 pg (25.0-34.0); Mean Corpuscular Hgb Conc 34.1 g/dL (32.0-36.0); Mean Corpuscular Volume 87.4 fL (80.0-100.0); Mean Platelet Volume 9.1 fL (9.4-12.4); Monocytes # (auto) 0.48 K/uL (0.11-0.59); Monocytes % (auto) 15.7 %; Neutrophils # (auto) 1.48 K/uL (1.40-6.50); Neutrophils % (auto) 48.5 %; Platelet Count 141 K/uL (130-400); RDW Coefficient of Variation 13.7 % (11.5-14.5); RDW Standard Deviation 43.6 fL (36.4-46.3); White Blood Count 3.05 K/ul (4.8-10.8)
[2023-12-10 05:15] LABS: BUN Creatinine Ratio 15.2 (10-20); Calcium 8.5 mg/dl (8.6-10.3); Creatinine Clr Calc Pharmacy 80.4 ml/min; Est GFR (African American) 85.9 ml/min; Est GFR (Non-African American) 74.1 ml/min; Potassium 3.9 mmol/L (3.5-5.1)
[2023-12-10 05:22] LABS: ANTI-Xa, UFH(UnfractionatedHep 0.43 IU/ml (0.3-0.7)
--- NOTE | 2023-12-10 07:36 | Electrocardiogram Report ---
Test Reason : Blood Pressure : / mmHG Vent. Rate : 067 BPM Atrial Rate : 067 BPM P-R Int : 156 ms QRS Dur : 078 ms QT Int : 390 ms P-R-T Axes : 050 -02 042 degrees QTc Int : 412 ms Normal sinus rhythm Normal ECG When compared with ECG of 08-DEC-2023 18:08, No significant change was found Confirmed by Kulwant Aly ([id number]) on 12/10/2023 7:36:27 AM Referred By: REFERRED SELF Confirmed By:Kulwant Aly
[2023-12-10] MEDS: OSELTAMIVIR PHOSPHATE 75 MG CAP PO SCH (10:34)
--- NOTE | 2023-12-10 16:51 | Hospitalist Progress Note ---
Date of Service December 10, 2023 Assessment & Plan (1) Pulmonary embolism: Plan: 63-year-old female with past medical history significant for hyperlipidemia, hiatal hernia, GERD, sigmoid diverticulosis, chronic constipation, hepatic steatosis, restless leg syndrome, history of DVT 6 to 7 years ago was on blood thinners for about 6 months and was stopped comes in because of ongoing cough for last 3 days and also pain in the left leg for last 3 days and chest pain started today and found to have DVT and PE and flu. His chest pain is more when coughing. States was having fever since yesterday. Denies runny nose or sore throat. No headache. No body aches. No weakness. Appetite is okay. No nausea. No abdominal pain. Normal bowel and bladder movements. He is take stool softeners for his chronic constipation. Denies any blood in the stools. Acute Pulmonary Embolism Acute left lower extremity DVT H/O DVT, PE in the past previously on Coumadin --CTA:Acute pulmonary emboli in the LEFT segment on subsequent branches. No CT evidence of RIGHT heart strain. --Venous Doppler:Occlusive deep venous thrombosis is seen in the left calf within the peroneal veins. --ECHO: Left ventricle is normal in size. Normal left ventricular wall thic kness. Left ventricle wall motion is normal. EF 66 5%. Right ventricle normal in size and function. Trivial aortic insufficiency. Continue IV heparin Patient prefers to be transition to [facility] as able Saturating well on room air Influenza A infection Serology negative for COVID, RSV Imaging studies showed no signs of pneumonia Started on Tamiflu Droplet precautions Saturating well on room air Pleuritic chest pain Secondary to PE Resolved Hyperlipidemia Continue atorvastatin Restless leg syndrome On gabapentin GERD Continue PPI Chronic constipation Continue home stool softeners DVT Px: IV heparin CODE STATUS Full code Admission and Anticipated Discharge Date Admission Date: December 09, 2023 Subjective Patient is seen and examined at bedside Leg pain resolved Denies any chest pain, dyspnea, nausea, vomiting, abdominal pain Currently on IV heparin Denies any bleeding issues Admits to having mild cough Review of Systems Review of Systems: All systems reviewed & are unremarkable except as noted in Subjective Physical Exam Physical Exam: Physical Exam: Vitals signs as noted above General Appearance:Moderately built and nourished, no apparent distress Head: normocephalic, Atraumatic Eyes: normal inspection, EOMI Neck: supple, Trachea midline Respiratory/Chest: Decreased breath sounds, CTA, No accessory muscle use Cardiovascular: S1, S2, No murmur Abdomen/GI:Soft, Non tender, Bowel sounds present Extremities/Musculoskeletal:normal inspection, Trace pedal edema Neurologic/Psych:AAOX3, grossly no focal neurological deficits Skin: normal color, warm Results & Data Results & Data Vital Signs (Past 12 Hours) Vital Signs Temp Pulse Resp BP Pulse Ox O2 Del Method 12/10/23 15:33 36.7 C 65 16 137/83 96 Room Air 12/10/23 11:19 36.7 C 63 16 126/79 96 Room Air 12/10/23 07:51 36.8 C 68 16 136/83 97 Room Air Laboratory Results Short CBC 12/10/23 Range/Units 04:36 WBC 3.05 L (4.8-10.8) K/ul Hgb 14.9 (14.0-18.0) g/dl Hct 43.7 (42.0-52.0) % Plt Count 141 (130-400) K/uL BMP 12/10/23 04:36 Sodium 137 Potassium 3.9 Chloride 106 Carbon Dioxide 25 BUN 16 Creatinine 1.05 Glucose 110 H Calcium 8.5 L (1) Pulmonary embolism Acute cor pulmonale presence: unspecified Chronicity: acute Pulmonary embolism type: unspecified Qualified Code(s): I26.99 - Other pulmonary embolism without acute cor pulmonale
[2023-12-11 05:05] LABS: Basophils # (auto) 0.03 K/uL (0.00-0.20); Basophils % (auto) 0.9 %; Eosinophils # (auto) 0.24 K/uL (0.00-0.50); Eosinophils % (auto) 7.3 %; Hematocrit (blood only) 46.1 % (42.0-52.0); Hemoglobin 15.6 g/dl (14.0-18.0); Lymphocytes # (auto) 1.29 K/uL (1.20-3.40); Mean Corpuscular Hemoglobin 29.3 pg (25.0-34.0); Mean Corpuscular Hgb Conc 33.8 g/dL (32.0-36.0); Mean Corpuscular Volume 86.7 fL (80.0-100.0); Mean Platelet Volume 9.5 fL (9.4-12.4); Monocytes # (auto) 0.28 K/uL (0.11-0.59); Monocytes % (auto) 8.5 %; Neutrophils # (auto) 1.47 K/uL (1.40-6.50); Neutrophils % (auto) 44.3 %; Platelet Count 161 K/uL (130-400); RDW Coefficient of Variation 13.4 % (11.5-14.5); RDW Standard Deviation 42.5 fL (36.4-46.3); Red Blood Count 5.32 M/uL (4.70-6.10); White Blood Count 3.31 K/ul (4.8-10.8)
[2023-12-11 05:20] LABS: BUN Creatinine Ratio 16.8 (10-20); Calcium 8.8 mg/dl (8.6-10.3); Creatinine Clr Calc Pharmacy 83.6 ml/min; Est GFR (Non-African American) 77.7 ml/min
[2023-12-11 05:29] LABS: ANTI-Xa, UFH(UnfractionatedHep 0.43 IU/ml (0.3-0.7)
--- NOTE | 2023-12-11 08:07 | Electrocardiogram Report ---
Test Reason : Blood Pressure : / mmHG Vent. Rate : 063 BPM Atrial Rate : 063 BPM P-R Int : 166 ms QRS Dur : 074 ms QT Int : 398 ms P-R-T Axes : 046 -08 028 degrees QTc Int : 407 ms Normal sinus rhythm Normal ECG When compared with ECG of 10-DEC-2023 06:11, No significant change was found Confirmed by Kulwant Aly ([id number]) on 12/11/2023 8:06:42 AM Referred By: REFERRED SELF Confirmed By:Kulwant Aly
[2023-12-11] MEDS: APIXABAN 5 MG TABLET PO SCH (10:34)
--- NOTE | 2023-12-11 10:45 | Hospitalist Progress Note ---
Date of Service December 11, 2023 Assessment & Plan (1) Pulmonary embolism: Plan: 63-year-old female with past medical history significant for hyperlipidemia, hiatal hernia, GERD, sigmoid diverticulosis, chronic constipation, hepatic steatosis, restless leg syndrome, history of DVT 6 to 7 years ago was on blood thinners for about 6 months and was stopped comes in because of ongoing cough for last 3 days and also pain in the left leg for last 3 days and chest pain started today and found to have DVT and PE and flu. His chest pain is more when coughing. States was having fever since yesterday. Denies runny nose or sore throat. No headache. No body aches. No weakness. Appetite is okay. No nausea. No abdominal pain. Normal bowel and bladder movements. He is take stool softeners for his chronic constipation. Denies any blood in the stools. Acute Pulmonary Embolism Acute left lower extremity DVT H/O DVT, PE in the past previously on Coumadin --CTA:Acute pulmonary emboli in the LEFT segment on subsequent branches. No CT evidence of RIGHT heart strain. --Venous Doppler:Occlusive deep venous thrombosis is seen in the left calf within the peroneal veins. --ECHO: Left ventricle is normal in size. Normal left ventricular wall thic kness. Left ventricle wall motion is normal. EF 66 5%. Right ventricle normal in size and function. Trivial aortic insufficiency. Continue IV heparin>> transition to Eliquis Saturating well on room air Plan to be discharged home today Influenza A infection Serology negative for COVID, RSV Imaging studies showed no signs of pneumonia Started on Tamiflu Droplet precautions Saturating well on room air Pleuritic chest pain Secondary to PE Resolved Hyperlipidemia Continue atorvastatin Restless leg syndrome On gabapentin GERD Continue PPI Chronic constipation Continue home stool softeners DVT Px: Eliquis CODE STATUS Full code Disposition Home Admission and Anticipated Discharge Date Admission Date: December 09, 2023 Subjective Patient is seen and examined at bedside States feeling well today No new complaints No recurrence of leg pain No bleeding issues while on IV heparin Denies any chest pain, dyspnea, nausea, vomiting, abdominal pain Cough better Discussed with patient's family at bedside Plan to be discharged home today Review of Systems Review of Systems: All systems reviewed & are unremarkable except as noted in Subjective Physical Exam Physical Exam: Physical Exam: Vitals signs as noted above General Appearance:Moderately built and nourished, no apparent distress Head: normocephalic, Atraumatic Eyes: normal inspection, EOMI Neck: supple, Trachea midline Respiratory/Chest: Decreased breath sounds, CTA, No accessory muscle use Cardiovascular: S1, S2, No murmur Abdomen/GI:Soft, Non tender, Bowel sounds present Extremities/Musculoskeletal:normal inspection, Trace pedal edema Neurologic/Psych:AAOX3, grossly no focal neurological deficits Skin: normal color, warm Results & Data Results & Data Vital Signs (Past 12 Hours) Vital Signs Temp Pulse Pulse Resp BP BP Pulse Ox 12/11/23 07:55 58 L 12/11/23 07:54 37.5 C 59 L 18 127/78 95 12/11/23 03:50 36.5 C 60 18 122/76 97 12/10/23 23:11 36.6 C 64 16 127/79 97 O2 Del Method 12/11/23 07:55 12/11/23 07:54 Room Air 12/11/23 03:50 Room Air 12/10/23 23:11 Room Air Laboratory Results Short CBC 12/11/23 Range/Units 04:21 WBC 3.31 L (4.8-10.8) K/ul Hgb 15.6 (14.0-18.0) g/dl Hct 46.1 (42.0-52.0) % Plt Count 161 (130-400) K/uL BMP 12/11/23 04:21 Sodium 138 Potassium 4.0 Chloride 106 Carbon Dioxide 24 BUN 17 Creatinine 1.01 Glucose 102 H Calcium 8.8 (1) Pulmonary embolism Acute cor pulmonale presence: unspecified Chronicity: acute Pulmonary embolism type: unspecified Qualified Code(s): I26.99 - Other pulmonary embolism without acute cor pulmonale
--- NOTE | 2023-12-11 10:53 | Discharge Summary ---
Date of Service December 11, 2023 Admission HPI Per Admitting Provider 63-year-old female with past medical history significant for hyperlipidemia, hiatal hernia, GERD, sigmoid diverticulosis, chronic constipation, hepatic steatosis, restless leg syndrome, history of DVT 6 to 7 years ago was on blood thinners for about 6 months and was stopped comes in because of ongoing cough for last 3 days and also pain in the left leg for last 3 days and chest pain started today and found to have DVT and PE and flu. His chest pain is more when coughing. States was having fever since yesterday. Denies runny nose or sore throat. No headache. No body aches. No weakness. Appetite is okay. No nausea. No abdominal pain. Normal bowel and bladder movements. He is take stool softeners for his chronic constipation. Denies any blood in the stools. Past med history. As mentioned above Past surgical history. Left total knee arthroplasty. Colonoscopy. Dental surgery. Endoscopy. ERCP. Tonsillectomy adenoidectomy. Left knee repair. Social history. . Former user of smokeless tobacco quit 1984. Snuff tobacco. Alcohol occasionally. No drug use Family history. Mother had arthritis. Hypertension. Father had prostate cancer. Uncle had prostate cancer. Sister has diabetes. Admission Exam Per Admitting Provider General- Not in distress. Head- atraumatic Eyes- PERRL. ENT- oropharynx clear Neck- supple, no JVD. Lungs- clear to auscultation no wheezing or crackles. Heart- regular rhythm; no murmur, no gallop. Abdomen- normal bowel sounds, soft, nontender, no distension. Extremities- Left lower extremity is somewhat swollen and warm to palpation. Neuro- alert, oriented PERRL, no facial palsy; no dysarthria;obeys commands Principal Diagnosis Acute Pulmonary Embolism Acute left lower extremity deep vein thrombosis Influenza A infection Discharge Data Allergies Allergy/AdvReac Type Severity Reaction Status Date / Time No Known Allergies Allergy Verified 12/08/23 20:52 Consultations 12/08/23 21:35 ED Decision to Admit Stat Procedures Performed Laboratory Results WBC 3.31 K/ul (4.8-10.8) L 12/11/23 04:21 RBC 5.32 M/uL (4.70-6.10) 12/11/23 04:21 Hgb 15.6 g/dl (14.0-18.0) 12/11/23 04:21 Hct 46.1 % (42.0-52.0) 12/11/23 04:21 MCV 86.7 fL (80.0-100.0) 12/11/23 04:21 MCH 29.3 pg (25.0-34.0) 12/11/23 04:21 MCHC 33.8 g/dL (32.0-36.0) 12/11/23 04:21 RDW Std Deviation 42.5 fL (36.4-46.3) 12/11/23 04:21 RDW Coeff of Louis 13.4 % (11.5-14.5) 12/11/23 04:21 Plt Count 161 K/uL (130-400) 12/11/23 04:21 MPV 9.5 fL (9.4-12.4) 12/11/23 04:21 Immature Gran % (Auto) 0.0 % 12/11/23 04:21 Neut % (Auto) 44.3 % 12/11/23 04:21 Lymph % (Auto) 39.0 % 12/11/23 04:21 Appling % (Auto) 8.5 % 12/11/23 04:21 Eos % (Auto) 7.3 % 12/11/23 04:21 Baso % (Auto) 0.9 % 12/11/23 04:21 Neut # (Auto) 1.47 K/uL (1.40-6.50) 12/11/23 04:21 Lymph # (Auto) 1.29 K/uL (1.20-3.40) 12/11/23 04:21 Appling # (Auto) 0.28 K/uL (0.11-0.59) 12/11/23 04:21 Eos # (Auto) 0.24 K/uL (0.00-0.50) 12/11/23 04:21 Baso # (Auto) 0.03 K/uL (0.00-0.20) 12/11/23 04:21 Immature Gran # (Auto) 0.00 K/uL (0.01-0.20) L 12/11/23 04:21 PT 10.8 Seconds (9.0-12.0) 12/08/23 18:10 INR 1.0 (0.9-1.1) 12/08/23 18:10 APTT 25 Seconds (21-31) 12/08/23 18:10 PTT Ratio 0.9 12/08/23 18:10 Heparin Anti-Xa, Unfract 0.43 IU/ml (0.3-0.7) 12/11/23 04:21 Sodium 138 mmol/L (136-145) 12/11/23 04:21 Potassium 4.0 mmol/L (3.5-5.1) 12/11/23 04:21 Chloride 106 mmol/L (98-107) 12/11/23 04:21 Carbon Dioxide 24 mmol/L (21-32) 12/11/23 04:21 Anion Gap 8 (3-11) 12/11/23 04:21 BUN 17 mg/dl (6-23) 12/11/23 04:21 Creatinine 1.01 mg/dl (0.6-1.4) 12/11/23 04:21 Est Cr Clr Drug Dosing 83.6 ml/min 12/11/23 04:21 Est GFR ( Amer) 90.0 ml/min 12/11/23 04:21 Est GFR (Non-Af Amer) 77.7 ml/min 12/11/23 04:21 BUN/Creatinine Ratio 16.8 (10-20) 12/11/23 04:21 Glucose 102 mg/dl (70-99(Fasting)) H 12/11/23 04:21 Calcium 8.8 mg/dl (8.6-10.3) 12/11/23 04:21 Magnesium 2.0 mg/dl (1.7-2.4) 12/09/23 04:09 Total Bilirubin 1.1 mg/dl (0.2-1.0) H 12/08/23 18:10 AST 24 U/L (13-39) 12/08/23 18:10 ALT 36 U/L (7-52) 12/08/23 18:10 Alkaline Phosphatase 67 U/L (34-104) 12/08/23 18:10 Troponin I High Sens 4.8 pg/ml (0-20) 12/09/23 17:22 Total Protein 7.8 gm/dl (6.0-8.3) 12/08/23 18:10 Albumin 4.8 gm/dl (3.4-5.0) 12/08/23 18:10 Globulin 3.0 gm/dl (2.5-4.0) 12/08/23 18:10 Albumin/Globulin Ratio 1.6 (0.9-2) 12/08/23 18:10 SARS-CoV-2 (PCR) NEGATIVE (Negative) 12/08/23 18:10 Influenza Type A (PCR) Positive (Neg) A 12/08/23 18:10 Influenza Type B (PCR) Negative (Neg) 12/08/23 18:10 RSV (RT-PCR) Negative (Neg) 12/08/23 18:10 Impressions Chest CTA 12/08/23 18:06 CR Exam(s): CTA CHEST IV Amt: 118 cc opti 320 EXAM: CT Angiography Chest With Intravenous Contrast CLINICAL HISTORY: Reason for exam: right flank pain, hx pe. TECHNIQUE: Axial computed tomographic angiography images of the chest with intravenous contrast. CTDI is 39.75 mGy and DLP is 832.36 mGy-cm. Automated exposure control was utilized for the study. A dose lowering technique was utilized adhering to the principles of ALARA. MIP reconstructed images were created and reviewed. COMPARISON: No relevant prior studies available. FINDINGS: Pulmonary arteries: Acute pulmonary emboli in the LEFT segment on subsequent branches. No CT evidence of RIGHT heart strain. Aorta: No acute findings. No thoracic aortic aneurysm. Lungs: Unremarkable. No mass. No consolidation. Pleural space: Unremarkable. No focal infiltrate, pleural effusion, or pneumothorax. Heart: Unremarkable. No cardiomegaly. No significant pericardial effusion. No evidence of RV dysfunction. Bones/joints: No acute fracture. No dislocation. Soft tissues: Unremarkable. Lymph nodes: Unremarkable. No enlarged lymph nodes. IMPRESSION: Acute pulmonary emboli in the LEFT segment on subsequent branches. No CT evidence of RIGHT heart strain. Communications: Call Doctor Other Electronically signed by: Bill Marquez MD 12/08/23 21:12 PM Venous Doppler Study 12/08/23 18:06 ULTRASOUND LEFT LOWER EXTREMITY VENOUS CLINICAL HISTORY: Left leg pain. COMPARISON STUDY: Left lower extremity venous ultrasound dated 12/16/2019. TECHNIQUE: Real-time, grayscale, and color Doppler sonography of the deep veins of the left lower extremity was performed from the inguinal crease to the calf. Compression and augmentation were utilized. FINDINGS: There is occlusive deep venous thrombosis in the calf within the peroneal veins. The remaining calf vessels are patent. The common femoral, superficial femoral, and popliteal veins are patent and normally compressible. The greater saphenous vein and the profunda femoris vein at the junction with the common femoral vein are clear. IMPRESSION: Occlusive deep venous thrombosis is seen in the left calf within the peroneal veins. ACT 112: Negative or not required by law. Electronically signed by: Anil Galarza M.D. 12/08/2023 8:24 PM Ordered Studies 12/08/23 18:06 CT angio chest PE protocol Stat US venous doppler LE LT Stat Hospital Course (1) Pulmonary embolism: 63-year-old female with past medical history significant for hyperlipidemia, hiatal hernia, GERD, sigmoid diverticulosis, chronic constipation, hepatic steatosis, restless leg syndrome, history of DVT 6 to 7 years ago was on blood thinners for about 6 months and was stopped comes in because of ongoing cough for last 3 days and also pain in the left leg for last 3 days and chest pain started today and found to have DVT and PE and flu. His chest pain is more when coughing. States was having fever since yesterday. Denies runny nose or sore throat. No headache. No body aches. No weakness. Appetite is okay. No nausea. No abdominal pain. Normal bowel and bladder movements. He is take stool softeners for his chronic constipation. Denies any blood in the stools. Acute Pulmonary Embolism Acute left lower extremity DVT H/O DVT, PE in the past previously on Coumadin and currently on Aspirin per patient/family --CTA:Acute pulmonary emboli in the LEFT segment on subsequent branches. No CT evidence of RIGHT heart strain. --Venous Doppler:Occlusive deep venous thrombosis is seen in the left calf within the peroneal veins. --ECHO: Left ventricle is normal in size. Normal left ventricular wall thickness. Left ventricle wall motion is normal. EF 66 5%. Right ventricle normal in size and function. Trivial aortic insufficiency. Continue IV heparin>> transition to Eliquis Saturating well on room air Plan to be discharged home today Influenza A infection Serology negative for COVID, RSV Imaging studies showed no signs of pneumonia Started on Tamiflu Droplet precautions Saturating well on room air Pleuritic chest pain Secondary to PE Resolved Hyperlipidemia Continue atorvastatin Restless leg syndrome On gabapentin GERD Continue PPI Chronic constipation Continue home stool softeners DVT Px: Eliquis CODE STATUS Full code Disposition Home Total Time Total Time Spent Total Time Spent (In Minutes): 58 minutes Discharge Plan Discharge Items Patient Disposition: Home - Self-Care Reason For Visit: ACUTE DVT, PE AND FLU Discharge Diagnosis: Acute Pulmonary Embolism Acute left lower extremity deep vein thrombosis Influenza A infection Activity: Per Instructions section Exercise/Sports: Wait until after follow-up appointment Non-emergency contact: Primary Care Provider Call non-emergency contact if: you have any medication questions, your symptoms worsen, your pain is concerning for you and you have a fever Follow-up/Referrals: Kamryn Brandon, [Primary Care Provider] - Diet: Heart Healthy Addtl Attending Provider Instructions: Follow-up with your primary care physician in 1 week -- Get blood test: Hypercoagulable workup as outpatient as recommended by your primary care physician -- Avoid NSAIDs like ibuprofen, Aleve, Motrin while on apixaban(Eliquis) as combination can increase your risk of bleeding. --Complete the Tamiflu course as prescribed Apixaban (Eliquis) course: Duration of course to be determined by your primary care physician Start taking apixaban 10 mg 2 times a day for 1 week, then take 5 mg 2 times a day Seek immediate medical attention if your symptoms reoccur or worsen Please take all medications as instructed on discharge list below. Please call if you have any questions or problems. You can reach a [facility] hospitalist on duty at [facility] 24 hours a day by calling [phone] Pending Studies at Discharge: No Stand-Alone Forms: My [facility], Smoking Cessation Medications and DC Order Prescriptions: New oseltamivir [Tamiflu] 75 mg Capsule 75 mg PO BID Qty: 7 0RF apixaban 5 mg (74 tabs) tablets,dose pack 10 mg PO BID Qty: 74 2RF Rx Instructions: Start taking apixaban 10 mg 2 times a day for 1 week, then take 5 mg 2 times a day Continued omeprazole 20 mg capsule,delayed release(DR/EC) 20 mg PO BID atorvastatin 40 mg tablet 40 mg PO QPM cholecalciferol (vitamin D3) [Vitamin D3] 50 mcg (2,000 unit) capsule 50 mcg PO QPM polyethylene glycol 3350 [Miralax] 17 gram Powder In Packet 17 g PO QPM potassium gluconate 595 mg (99 mg) Tablet 595 mg PO QPM gabapentin 400 mg capsule 400 mg PO HS Fiber (dextrin) 3 gram/3.5 gram Powder 3 g PO QPM Discontinued aspirin 81 mg Tablet,Delayed Release (Dr/Ec) 81 mg PO QPM Discharge Orders: Discharge Order (Routine); Ordered 12/11/23 Ordered By: Geraldo Yoder Admission Data Admit Date/Time: 12/09/23 02:05 Attending Provider: Geraldo Yoder Admit Provider: Redd Meraz Primary Care Provider: Kamryn Brandon Other Providers: Redd Meraz
== END 2023-12-11 11:53 | disposition home or self-care (01) | DRG 299 ==
LOC: ED 17:22 → SUATTDRO 12-09 02:05 → EDINP 12-09 02:05 → 2W 12-09 02:53